=== PATIENT | male | born 1950 | race African-American/Black ===

== ENCOUNTER 2018-06-04 | Observation (INO) | payer OTHER, BC ==
[2018-06-04] MEDS ORDERED: NA CHLORIDE 0.9% 500 ML ONE ×2 (00:57→04:00)
[2018-06-04 00:59] LABS: Absolute Lymphocytes (CBC) 0.5 K/uL (0.7-4.9); Absolute Monocytes 0.6 K/uL (0.1-1.3); Absolute Neutrophil 8.8 K/uL (1.8-8.0); Basophils % 0.2 % (0-1.3); Eosinophils % 0.3 % (0-4.4); Hematocrit 47.4 % (39.6-49.0); Lymphocytes % 4.9 % (15.3-44.8); MPV 8.2 fL (7.6-11.3); Monocytes % 5.7 % (3.3-12.3); RBC Red Blood Cell Count 5.35 M/uL (4.33-5.43)
[2018-06-04 01:17] LABS: BUN Blood Urea Nitrogen 21 mg/dL (7-18); Bicarbonate 24 mmol/L (21-32); Glucose Level 174 mg/dL (74-106); NT PRO-BNP 27 pg/mL (<125); Potassium 3.7 mmol/L (3.5-5.1); Sodium Level 139 mmol/L (136-145); Troponin (Emerg Dept Use Only) < 0.02 ng/mL (0.0-0.045)
[2018-06-04 02:10] LABS: Blood Morphology Comment NOT SEEN (NOT SEEN); Platelet Estimate ADEQ; Urine White Blood Cell Casts OK
--- NOTE | 2018-06-04 02:48 | EDPHYS ---
Physician Documentation [facility] Name: Marquez De Oliveira Jr Age: 68 yrs Sex: Male : 1950 Arrival Date: 06/04/2018 Time: 00:04 Bed 6 Private MD: Porter Peres E ED Physician Duke Downs HPI: 06/04 01:05 This 68 yrs old Black Male presents to ER via Ambulatory with complaints of Dizziness, rn Nausea, Diarrhea. 01:05 The patient presents with feeling faint, generalized weakness, lightheadedness. rn 01:06 Onset: The symptoms/episode began/occurred at an unknown time. Modifying factors: The rn symptoms are alleviated by nothing, the symptoms are aggravated by standing up, changing position. Severity of symptoms: At their worst the symptoms were mild in the emergency department the symptoms are unchanged. The patient has experienced similar episodes in the past. Reports 1 month of cough, diarrhea, reports 2 rounds of z-packs, also reports recent trip to [place] when he began to feel worse, non-productive cough, drove 1000 miles without break, no hx of dvt/pe. No chest pain. + mild sob. No vomiting/abd pain.. Historical: - Allergies: 00:16 Amoxicillin; lp1 00:16 Aspirin; lp1 00:16 PENICILLINS; lp1 - Home Meds: 00:16 lisinopril 20 mg oral tab once daily [Active]; Coreg 6.25 mg oral tab 2 times per day lp1 [Active]; - PMHx: 00:16 Gout; Hypertension; lp1 - PSHx: 00:16 None; lp1 - Immunization history:: Adult Immunizations up to date. - Social history:: Smoking status: Patient/guardian denies using tobacco. - Ebola Screening: : No symptoms or risks identified at this time. - Family history:: not pertinent. - Hospitalizations: : No recent hospitalization is reported. ROS: 01:06 Constitutional: Negative for fever, chills, and weight loss, Eyes: Negative for injury, rn pain, redness, and discharge, Neck: Negative for injury, pain, and swelling, Cardiovascular: Negative for chest pain, palpitations, and edema, Respiratory: Negative for wheezing, and pleuritic chest pain, Abdomen/GI: Negative for abdominal pain, nausea, vomiting, and constipation, MS/Extremity: Negative for injury and deformity, Skin: Negative for injury, rash, and discoloration, Neuro: Negative for headache, numbness, tingling, and seizure. Exam: 01:06 Constitutional: This is a well developed, well nourished patient who is awake, alert, rn and in no acute distress. Head/Face: Normocephalic, atraumatic. Eyes: Pupils equal round and reactive to light, extra-ocular motions intact. Lids and lashes normal. Conjunctiva and sclera are non-icteric and not injected. Cornea within normal limits. Periorbital areas with no swelling, redness, or edema. Cardiovascular: Regular rhythm, + tachycardic, no murmur Respiratory: Mild tachypnea, no retractions, speaking full sentences Abdomen/GI: soft, non-tender Skin: Warm, dry with normal turgor. Normal color with no rashes, no lesions, and no evidence of cellulitis. MS/ Extremity: Pulses equal, no cyanosis. Neurovascular intact. Full, normal range of motion. Equal circumference. Neuro: Awake and alert, GCS 15, oriented to person, place, time, and situation. Cranial nerves II-XII grossly intact. Motor strength 5/5 in all extremities. Sensory grossly intact. Cerebellar exam normal. Vital Signs: 00:14 BP 125 / 71; Pulse 122; Resp 20; Temp 98.3(TE); Pulse Ox 96% on R/A; Weight 131.54 kg; lp1 Height 5 ft. 9 in. (175.26 cm); Pain 0/10; 01:25 BP 115 / 64; Pulse 108; Resp 23; Pulse Ox 95% ; ms 03:00 BP 101 / 60; Pulse 105; Resp 22; Pulse Ox 99% on R/A; lp1 04:45 BP 101 / 47; Pulse 101; Resp 23; Pulse Ox 100% on R/A; lp1 07:38 BP 107 / 70; Pulse 104; Resp 22; Pulse Ox 96% on R/A; sv 00:14 Body Mass Index 42.83 (131.54 kg, 175.26 cm) lp1 MDM: 00:08 Patient medically screened. rn 02:44 Differential diagnosis: cardiac arrhythmia, generalized weakness, hyperventilation, rn hypovolemia, idiopathic dizziness, near-syncope, PE. Data reviewed: vital signs, nurses notes, lab test result(s), EKG, radiologic studies, CT scan, and as a result, I will admit patient. Counseling: I had a detailed discussion with the patient and/or guardian regarding: the historical points, exam findings, and any diagnostic results supporting the discharge/admit diagnosis, lab results, radiology results, the need for further work-up and treatment in the hospital. Response to treatment: the patient's symptoms have mildly improved after treatment. Admission orders: after a detailed discussion of the patient's condition and case, the admit orders are written by me. ED course: CT shows multiple bilateral Pulmonary emboli, will admit for lovenox and further care. . 06/04 00:17 Order name: Blood Culture Adult (2) rn 06/04 00:17 Order name: BMP; Complete Time: : rn 06/04 00:17 Order name: CBC with Diff; Complete Time: 02:25 rn 06/04 00:17 Order name: NT PRO-BNP; Complete Time: : rn 06/04 00:17 Order name: Troponin (emerg Dept Use Only); Complete Time: 01: rn 06/04 00:19 Order name: Strep; Complete Time: 02:25 rn 06/04 00:17 Order name: XRAY CXR (1 view) rn 06/04 00:17 Order name: EKG; Complete Time: 00:18 rn 06/04 00:44 Order name: CT Chest For PE Angio rn 06/04 01:22 Order name: Throat Culture EDKS 06/04 02:10 Order name: CBC Smear Scan; Complete Time: 02:25 [facility] 06/04 00:17 Order name: Cardiac monitoring; Complete Time: 00:32 rn 06/04 00:17 Order name: EKG - Nurse/Tech; Complete Time: 00:32 rn 06/04 00:17 Order name: IV Saline Lock; Complete Time: 00:45 rn 06/04 00:17 Order name: Labs collected and sent; Complete Time: 00:44 rn 06/04 00:17 Order name: O2 Per Protocol; Complete Time: 00:32 rn 06/04 00:17 Order name: O2 Sat Monitoring; Complete Time: 00:32 rn Administered Medications: 00:56 Drug: NS 0.9% 500 ml Route: IV; Rate: bolus; Site: left antecubital; lp1 02:00 Follow up: IV Status: Completed infusion; IV Intake: 500ml lp1 03:18 Drug: Lovenox 1 mg/kg Route: Sub-Q; Site: right lower abdomen; lp1 04:00 Follow up: Response: No adverse reaction lp1 03:54 Drug: NS 0.9% 500 ml Route: IV; Rate: bolus; Site: left antecubital; lp1 05:00 Follow up: IV Status: Completed infusion; IV Intake: 500ml lp1 Disposition: 06/04/18 02:46 Hospitalization ordered by Ginger Arenas for Inpatient Admission. Preliminary diagnosis are Pulmonary embolism, Dyspnea, unspecified. - Bed requested for Telemetry/MedSurg (Inpatient). - Status is Inpatient Admission. sv - Condition is Stable. - Problem is new. - Symptoms have improved. UTI on Admission? No Signatures: Dispatcher [employer] EDMS Sol Stoner RN RN kl Verde, Stephanie, RN RN sv Therrien, Shelly, FOOD SERVICE TRAY ATTENDANT-C FOOD SERVICE TRAY ATTENDANT-Csnw Rasheeda Breaux RN RN Duke Downs MD MD rn Pena, Laura, RN RN lp1 Corrections: (The following items were deleted from the chart) 04:22 02:46 Hospitalization Ordered by Ginger Arenas MD for Inpatient Admission. Preliminary diagnosis is Pulmonary embolism; Dyspnea, unspecified. Bed requested for Telemetry/MedSurg (Inpatient). Status is Inpatient Admission. Condition is Stable. Problem is new. Symptoms have improved. UTI on Admission? No. rn 06:46 04:22 06/04/2018 02:46 Hospitalization Ordered by Ginger Arenas MD for Inpatient kl Admission. Preliminary diagnosis is Pulmonary embolism; Dyspnea, unspecified. Bed requested for [facility] ER HOLD. Status is Inpatient Admission. Condition is Stable. Problem is new. Symptoms have improved. UTI on Admission? No. fc 07:39 06:46 06/04/2018 02:46 Hospitalization Ordered by Ginger Arenas MD for Inpatient sv Admission. Preliminary diagnosis is Pulmonary embolism; Dyspnea, unspecified. Bed requested for Telemetry/MedSurg (Inpatient). Status is Inpatient Admission. Condition is Stable. Problem is new. Symptoms have improved. UTI on Admission? No. kl 07:50 07:39 06/04/2018 02:46 Hospitalization Ordered by Ginger Arenas MD for Inpatient sv Admission. Preliminary diagnosis is Pulmonary embolism; Dyspnea, unspecified. Bed requested for Telemetry/MedSurg (Inpatient). Status is Inpatient Admission. Condition is Stable. Problem is new. Symptoms have improved. UTI on Admission? No. sv
--- NOTE | 2018-06-04 02:48 | ER ---
Nurse's Notes [facility] Name: Marquez De Oliveira Jr Age: 68 yrs Sex: Male : 1950 Arrival Date: 06/04/2018 Time: 00:04 Bed 6 Private MD: Porter Peres E Diagnosis: Pulmonary embolism;Dyspnea, unspecified Presentation: 06/04 00:12 Presenting complaint: Patient states: Nausea, dizziness, diarrhea x 1 month, worsening; lp1 States taking 2 rounds of antibiotics with relief but recently traveled to [place] and symptoms worsened; Denies any abdominal pain, vomiting. Transition of care: patient was not received from another setting of care. Onset of symptoms was June 04, 2018. Risk Assessment: Do you want to hurt yourself or someone else? Patient reports no desire to harm self or others. Initial Sepsis Screen: Does the patient meet any 2 criteria? No. Patient's initial sepsis screen is negative. Does the patient have a suspected source of infection? No. Patient's initial sepsis screen is negative. Care prior to arrival: None. 00:12 Method Of Arrival: Ambulatory lp1 00:12 Acuity: NESHA 3 lp1 Historical: - Allergies: 00:16 Amoxicillin; lp1 00:16 Aspirin; lp1 00:16 PENICILLINS; lp1 - Home Meds: 00:16 lisinopril 20 mg oral tab once daily [Active]; Coreg 6.25 mg oral tab 2 times per day lp1 [Active]; - PMHx: 00:16 Gout; Hypertension; lp1 - PSHx: 00:16 None; lp1 - Immunization history:: Adult Immunizations up to date. - Social history:: Smoking status: Patient/guardian denies using tobacco. - Ebola Screening: : No symptoms or risks identified at this time. - Family history:: not pertinent. - Hospitalizations: : No recent hospitalization is reported. Screenin:17 Abuse screen: Denies threats or abuse. Denies injuries from another. Nutritional lp1 screening: No deficits noted. Tuberculosis screening: No symptoms or risk factors identified. Fall Risk None identified. Assessment: 00:15 General: Appears in no apparent distress. Behavior is calm, cooperative, appropriate lp1 for age. Pain: Complains of pain in abdomen. Neuro: Level of Consciousness is awake, alert, obeys commands, Oriented to person, place, time, situation, Reports dizziness. Cardiovascular: Patient's skin is warm and dry. Respiratory: Respiratory effort is even, Respiratory pattern is regular, symmetrical, Breath sounds are clear bilaterally. GI: Abdomen is non-distended, Bowel sounds present X 4 quads. Reports diarrhea, nausea. : No signs and/or symptoms were reported regarding the genitourinary system. EENT: No signs and/or symptoms were reported regarding the EENT system. Derm: Skin is intact, Skin is dry, Skin is normal. Musculoskeletal: Circulation, motion, and sensation intact. 01:30 Reassessment: Patient appears in no apparent distress at this time. Patient and/or lp1 family updated on plan of care and expected duration. Pain level reassessed. Patient aware of waiting for results, at bedside. 03:30 Reassessment: Patient aware of need for admission. lp1 04:30 Reassessment: Patient appears in no apparent distress at this time. Patient and/or lp1 family updated on plan of care and expected duration. Pain level reassessed. Patient complaint of abdominal pain and continued diarrhea. 07:39 Reassessment: Report called to Andrés CANAS. sv Vital Signs: 00:14 BP 125 / 71; Pulse 122; Resp 20; Temp 98.3(TE); Pulse Ox 96% on R/A; Weight 131.54 kg; lp1 Height 5 ft. 9 in. (175.26 cm); Pain 0/10; 01:25 BP 115 / 64; Pulse 108; Resp 23; Pulse Ox 95% ; ms 03:00 BP 101 / 60; Pulse 105; Resp 22; Pulse Ox 99% on R/A; lp1 04:45 BP 101 / 47; Pulse 101; Resp 23; Pulse Ox 100% on R/A; lp1 07:38 BP 107 / 70; Pulse 104; Resp 22; Pulse Ox 96% on R/A; sv 00:14 Body Mass Index 42.83 (131.54 kg, 175.26 cm) lp1 ED Course: 00:04 Patient arrived in ED. es 00:04 Porter Peres MD is Private Physician. es 00:08 Duke Downs MD is Attending Physician. rn 00:14 Triage completed. lp1 00:14 Arm band placed on left wrist. lp1 00:17 Patient has correct armband on for positive identification. Placed in gown. Cardiac lp1 monitor on. Pulse ox on. NIBP on. 00:31 Elsi Toscano, FLORESITA is Primary Nurse. lp1 00:40 Inserted saline lock: 20 gauge in left antecubital area, using aseptic technique. Blood lp1 collected. By LANDON Sommers. 00:40 Initial lab(s) drawn, by ED staff, sent to lab. First set of blood cultures drawn by ED lp1 staff. 00:46 X-ray completed. Portable x-ray completed in exam room. Patient tolerated procedure sg4 well. 00:47 XRAY CXR (1 view) In Process Unspecified. EDMS 00:51 Strep swab sent to lab. lp1 01:[address] via stretcher. kw1 01:52 CT Chest For PE Angio In Process Unspecified. EDMS 01:[address]. sg4 02:46 Ginger Arenas MD is Hospitalizing Provider. rn 05:16 No provider procedures requiring assistance completed. Patient admitted, IV remains in lp1 place. Administered Medications: 00:56 Drug: NS 0.9% 500 ml Route: IV; Rate: bolus; Site: left antecubital; lp1 02:00 Follow up: IV Status: Completed infusion; IV Intake: 500ml lp1 03:18 Drug: Lovenox 1 mg/kg Route: Sub-Q; Site: right lower abdomen; lp1 04:00 Follow up: Response: No adverse reaction lp1 03:54 Drug: NS 0.9% 500 ml Route: IV; Rate: bolus; Site: left antecubital; lp1 05:00 Follow up: IV Status: Completed infusion; IV Intake: 500ml lp1 Intake: 02:00 IV: 500ml; Total: 500ml. lp1 05:00 IV: 500ml; Total: 1000ml. lp1 Outcome: 02:46 Decision to Hospitalize by Provider. rn 05:16 Admitted to ER Hold. Please see [facility] for further documentation. lp1 05:16 Condition: stable 05:16 Instructed on the need for admit. 07:50 Patient left the ED. sv Signatures: Dispatcher [employer] Jamilah Lieberman RN RN sv Salyer, Edna es Solis, Maria ms Nieto, Roman, MD MD rn Pena, Laura, RN RN lp1 Sol Solitario1 Kenya Pappas sg4 Corrections: (The following items were deleted from the chart) 00:55 00:40 Initial lab(s) drawn, by ED staff, sent to lab. First set of blood cultures drawn lp1 lp1
[2018-06-04] MEDS ORDERED: ENOXAPARIN 100 MG/ML SYR SQ ONE (03:16)
[2018-06-04] MEDS ORDERED: ENOXAPARIN 30 MG/0.3 ML SQ ONE (03:17)
[2018-06-04] MEDS ORDERED: ACETAMINOPHEN 500 MG TAB PO PRN (04:37)
[2018-06-04] MEDS ORDERED: ONDANSETRON 4 MG/2 ML VIAL IV PRN (04:37)
[2018-06-04] MEDS: NA CHLORIDE 0.9% 1,000 ML IV SCH ×2 (05:16→16:27)
[2018-06-04] MEDS ORDERED: NA CHLORIDE 0.9% 1,000 ML ONE (05:21)
[2018-06-04] MEDS ORDERED: MORPHINE 2 MG/ML SYR IV PRN (05:26)
--- NOTE | 2018-06-04 05:33 | P.HP ---
Certification for Inpatient Patient admitted to: Inpatient With expected LOS: >2 Midnights Practitioner: I am a practitioner with admitting privileges, knowledge of patient current condition, hospital course, and medical plan of care. Services: Services provided to patient in accordance with Admission requirements found in Title 42 Section 412.3 of the Code of Federal Regulations Patient History Date of Service: 06/04/18 Reason for admission: pulmonary embolism History of Present Illness: Mr De Oliveira is a 68 years old male with history of HTN, since 1 month ago start with cough, he was treated with 2 rounds of oral antibiotics. He recently did a road trip to [place], he came to ED complaining of SOB, feeling faint and dizzy , specially when he stand up fro bed or chair. No history of fever or chills. No chest pain. He presented tahcycardic, O2 sat 96% on RA. In ER lab work remarkable for normal WBC count, elevated creatinine. CXR shows no acute abnormalities, CTA chest remarkable for multiple bilateral PE. Allergies aspirin Allergy (Intermediate, Verified 02/26/12 08:43) Hives/Rash amoxicillin [Amoxicillin] Allergy (Mild, Verified 02/26/12 08:43) Itching/Hives/Rash Penicillins Allergy (Verified 06/04/18 05:31) Itching/Hives/Rash Home Medications: Carvedilol [Coreg] 6.25 mg PO BID 06/04/18 Lisinopril [Prinivil] 20 mg PO DAILY 06/04/18 - Past Medical/Surgical History -: obesity -: gout -: HTN Past Surgical History: Reviewed- Non-Contributory - Family History Family History: Reviewed- Non-Contributory - Social History Smoking Status: Former smoker Alcohol use: No CD- Drugs: No Place of Residence: Home Review of Systems 10-point ROS is otherwise unremarkable Physical Examination - Physical Exam General: Alert, In no apparent distress HEENT: Atraumatic, PERRLA, Mucous membr. moist/pink, EOMI, Sclerae nonicteric Neck: Supple, 2+ carotid pulse no bruit, No LAD, Without JVD or thyroid abnormality Respiratory: Clear to auscultation bilaterally, Normal air movement Cardiovascular: Regular rate/rhythm, Normal S1 S2 Gastrointestinal: Normal bowel sounds, No tenderness Musculoskeletal: No tenderness Integumentary: No rashes Neurological: Normal speech, Normal strength at 5/5 x4 extr, Normal tone, Normal affect Lymphatics: No axilla or inguinal lymphadenopathy - Studies Laboratory Data (last 24 hrs) 06/04/18 00:40: WBC 9.9, Hgb 15.9, Hct 47.4, Plt Count 237 06/04/18 00:40: Sodium 139, Potassium 3.7, BUN 21 H, Creatinine 1.51 H, Glucose 174 H Microbiology Data (last 24 hrs): 06/04/18 00:45 Throat Group A Streptococcus Rapid Screen - Final Assessment and Plan - Problems (Diagnosis) (1) Pulmonary embolism Current Visit: Yes Status: Acute Qualifiers: Pulmonary embolism type: unspecified Chronicity: acute Acute cor pulmonale presence: without acute cor pulmonale Qualified Code(s): I26.99 - Other pulmonary embolism without acute cor pulmonale (2) HTN (hypertension) Current Visit: Yes Status: Acute Qualifiers: Hypertension type: essential hypertension Qualified Code(s): I10 - Essential (primary) hypertension (3) Obesity Current Visit: Yes Status: Acute Qualifiers: Obesity type: unspecified obesity type Obesity classification: unspecified obesity classification Serious obesity comorbidity presence: unspecified whether serious comorbidity present Qualified Code(s): E66.9 - Obesity, unspecified - Plan Will order full anticoagulation with lovenox, venous doppler of lower extremities, Os2 support as needed. - Advance Directives Does patient have a Living Will: No Does patient have a Durable POA for Healthcare: No - Code Status/Comfort Care Code Status Assessed: Yes Code Status: Full Code
[2018-06-04 05:40] VITALS: BMI 42.8
[2018-06-04] MEDS ORDERED: ONDANSETRON 4 MG/2 ML VIAL ONE (05:54)
[2018-06-04] MEDS ORDERED: MORPHINE 4 MG/ML SYR ONE (05:54)
[2018-06-04] MEDS ORDERED: DIPHENHYDRAMINE 25 MG TAB/CAP PO PRN (08:53)
[2018-06-04] MEDS ORDERED: PNEUMOCOCCAL VACCINE 0.5 ML IMVAC ONE (09:00)
[2018-06-04] MEDS ORDERED: INFLUENZA VACCINE (for 3y+) 0.5 ML DOSE IMVAC ONE (09:00)
[2018-06-04] MEDS ORDERED: ENOXAPARIN 100 MG/ML SYR SQ SCH (09:00)
[2018-06-04] MEDS ORDERED: MORPHINE 4 MG/ML SYR IV PRN (11:00)
--- NOTE | 2018-06-04 12:02 | RAD REPORT ---
EXAM DESCRIPTION: CT - Chest For Pe Angio - 06/04/2018 5:50 am CLINICAL HISTORY: Chest pain. DYSPNEA COMPARISON: No comparisons TECHNIQUE: CT angiogram of the pulmonary arteries was performed with MIP. All CT scans are performed using dose optimization technique as appropriate and may include automated exposure control or mA/KV adjustment according to patient size. FINDINGS: Small filling defects are noted in the upper and lower distal pulmonary arterial tree bran ches. Assessment is somewhat degraded by respiratory motion artifact small distal pulmonary emboli robledo spected. No acute aortic finding demonstrated. Small hiatal hernia. The lungs are clear. No significant pericardial or pleural fluid. No concerning bony finding. IMPRESSION: Small distal pulmonary emboli suspected bilaterally. A preliminary written report was provided at the time of the study, and the report was reviewed prior to final dictation.
--- NOTE | 2018-06-04 12:10 | RAD REPORT ---
EXAM DESCRIPTION: RAD - Chest Single View - 06/04/2018 12:47 am CLINICAL HISTORY: Cough;Dyspnea Chest pain. COMPARISON: Chest Single View dated 08/15/2016; CHEST SINGLE VIEW dated 02/26/2012 FINDINGS: Portable technique limits examination quality. The lungs are grossly clear. The heart is normal in size. No displaced fractures. IMPRESSION: No acute intrathoracic process suspected.
[2018-06-04] MEDS ORDERED: POTASSIUM CL SA 10 MEQ TAB PO ONE (15:50)
[2018-06-04] MEDS: ENOXAPARIN 100 MG/ML SYR SQ SCH (16:27)
--- NOTE | 2018-06-04 16:28 | EKG ---
Test Date: 2018-06-04 Test Time: 00:24:43 Carpentry Professional: KAY MEASUREMENT RESULTS: Intervals: Rate: 119 IA: 152 QRSD: 86 QT: 320 QTc: 450 [place]: P: 18 IA: 152 QRS: -33 T: -19 INTERPRETIVE STATEMENTS: Sinus tachycardia Left axis deviation Inferior infarct, age undetermined Abnormal ECG Compared to ECG 08/15/2016 13:50:35 Left-axis deviation now present Myocardial infarct finding now present Sinus bradycardia no longer present Electronically Signed On 06-04-18 16:27:20 DEMURRAGE AGENT by Benito De Oliveira
--- NOTE | 2018-06-04 16:45 | RAD REPORT ---
EXAM DESCRIPTION: US - Extrem Venous W Compress Bashir - 06/04/2018 4:26 pm CLINICAL HISTORY: rule out DVT Bilateral leg edema and swelling. COMPARISON: No comparisons TECHNIQUE: Real-time sonographic interrogation of the left and right lower extremity deep venous sys tems was performed. FINDINGS: Normal compressibility, flow augmentation, phasic flow and spontaneous flow is identified in both the left and right lower extremity deep venous systems. IMPRESSION: No sonographic evidence of left or right lower extremity deep venous thrombosis.
--- NOTE | 2018-06-04 18:06 | PN ---
Date of Progress Note: 06/04/2018 Subjective: Patient seen and examined. Chart reviewed and case discussed with RN. The patient belgica es any significant shortness of breath. Does report some hives that have developed on his back. Medications: Reviewed. Code Status: Full. Physical Examination: Vital Signs: Temperature 97.3, heart rate 76, blood pressure 117/58, respirations 20, O2 97% on room air. GENERAL: Awake, alert, oriented x3, some mild distress. Obese male. Slightly ill appearing. CV: S1, S2 with no murmurs. Peripheral pulses present. Respiratory: Moving air well bilaterally. Gastrointestinal: Abdomen is soft, nontender, nondistended. Positive bowel sounds. Extremities: No clubbing, cyanosis, edema. Neurologic: Nonfocal. Laboratory Data: Sodium 139, potassium 3.7, chloride 106, CO2 24, BUN 21, creatinine 1.51, glucose 1 74, calcium 8.5. Troponin less than 0.02. WBC 9.9, H and H 15.9/47.4, platelets 237. Blood culture pending. CT angio chest shows small distal PE suspected bilaterally. Chest x-ray, personally reviewed, shows no acute intrathoracic process. Assessment And Plan: A 68-year-old male with: 1.Acute bilateral pulmonary embolism without cor pulmonale. 2.Essential hypertension. 3.Morbid obesity, BMI 42.8. 4.Gout. We will resume home medications. Plan: We will continue with full-dose anticoagulation with Lovenox. We will obtain venous Doppler o f the lower extremities. Supplemental oxygen as needed. We will consult Pulmonology. Obtain echoca rdiogram. The patient will need to be on oral anticoagulant for 3 to 6 months as this is a provoked PE secondary to likely DVT. The patient had a long car drive to [place] and did not take many stops . No family history of blood clots and no personal history of previous blood clots. Discharge the n ext 24 to 48 hours depending on clinical response. SA/MODL Voice ID: [id number] Report ID: [id number]
[2018-06-04] MEDS ORDERED: LISINOPRIL 20 MG TAB PO SCH (21:00)
[2018-06-04] MEDS: CARVEDILOL 6.25 MG TAB PO SCH (21:37)
[2018-06-05] MEDS: ENOXAPARIN 100 MG/ML SYR SQ SCH (02:23)
[2018-06-05] MEDS: NA CHLORIDE 0.9% 1,000 ML IV SCH ×2 (02:23→10:37)
[2018-06-05 04:37] LABS: Absolute Lymphocytes (CBC) 2.3 K/uL (0.7-4.9); Absolute Monocytes 1.2 K/uL (0.1-1.3); Basophils % 0.2 % (0-1.3); Eosinophils % 2.5 % (0-4.4); Hematocrit 41.7 % (39.6-49.0); Lymphocytes % 29.9 % (15.3-44.8); MPV 8.2 fL (7.6-11.3); Monocytes % 15.7 % (3.3-12.3)
[2018-06-05 05:01] LABS: Blood Morphology Comment NOT SEEN (NOT SEEN); Platelet Estimate ADEQ; Urine White Blood Cell Casts OK
[2018-06-05 05:06] LABS: Magnesium 2.3 mg/dL (1.8-2.4); Potassium 4.1 mmol/L (3.5-5.1)
[2018-06-05] MEDS ORDERED: PANTOPRAZOLE 40MG TABLET PO SCH (07:30)
--- NOTE | 2018-06-05 08:40 | P.CNS ---
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 for an SVT apart from hypertension no other medical problems no prior history of thromboemboli denies any swelling of his lower extremities CT school and questionable pulmonary emboli a as no evidence of DVT Allergies aspirin Allergy (Intermediate, Verified 02/26/12 08:43) Hives/Rash amoxicillin [Amoxicillin] Allergy (Mild, Verified 02/26/12 08:43) Itching/Hives/Rash Penicillins Allergy (Verified 06/04/18 05:31) Itching/Hives/Rash Home Medications: Acetaminophen [Tylenol Extra Strength] 1,000 mg PO PRN PRN 06/04/18 Carvedilol [Coreg] 6.25 mg PO BID 06/04/18 Docusate [Colace Cap*] 100 mg PO DAILY 06/04/18 Lisinopril [Prinivil] 20 mg PO BID 06/04/18 Multivit-Min/FA/Lycopen/Lutein [Centrum Silver Men Tablet] 1 each PO DAILY 06/04 Omeprazole 20 mg PO DAILY 06/04/18 - Past Medical/Surgical History Diabetic: No -: obesity -: gout -: HTN -: obstructive sleep apnea -: high cholesterol -: GERT -: diverticulosis - Family History Mother Medical History: Hypertension, Diabetes - Social History Alcohol use: No CD- Drugs: No Caffeine use: No Place of Residence: Home Review of Systems 10-point ROS is otherwise unremarkable Physical Examination Temp Pulse Resp BP Pulse Ox 97 F 64 20 133/63 98 06/05/18 08:00 06/05/18 08:00 06/05/18 08:00 06/05/18 08:00 06/05/18 08:00 General: Alert, In no apparent distress, Oriented x3, Cachectic Neck: Supple Respiratory: Clear to auscultation bilaterally Cardiovascular: No edema, Regular rate/rhythm, Normal S1 S2 - Problems (1) Abnormal CT scan of lung Current Visit: Yes Status: Acute Plan: Patient is 68 years of age admitted with a 2 week history of cough shortness of breath and diarrhea I suspect he may have a had a viral infection not convinced that this is pulmonary embolism unable to visualize any significant thromboemboli in his lungs no evidence of DVT low pre clinical probability for thromboembolism I suggested V/Q scan a this negative anticoagulants can be discontinued patient discharged home he does have sleep apnea uses CPAP chemistries and CBC unremarkable vital signs are satisfactory saturation is normal echocardiogram is pending
[2018-06-05] MEDS ORDERED: HOME MED 1 EA UNK (Omeprazole [Omeprazole] 20 MG) PO SCH (09:00)
[2018-06-05] MEDS ORDERED: DOCUSATE NA 100 MG CAP PO SCH (09:00)
[2018-06-05] MEDS: CARVEDILOL 6.25 MG TAB PO SCH (09:31)
[2018-06-05 10:10] VITALS: O2SAT 98
--- NOTE | 2018-06-05 10:27 | RAD REPORT ---
EXAM DESCRIPTION: NM - Vent Perfusion VQ Scan - 06/05/2018 10:09 am CLINICAL HISTORY: SOB, possible PE COMPARISON: Chest For Pe Angio dated 06/04/2018 TECHNIQUE: 13.9mCi Xe-133 gas inhaled and 7.5mCi Tc-MAA IV. Planar ventilation scan was performed in posterior projection after Xe-133 gas inhalation (wash-in, e quilibrium, and wash-out phases) followed by perfusion scan with Tc-MAA IV in multiple projections. Examination is correlated with recent chest radiograph. FINDINGS: Homogeneous ventilation is noted with mild to moderate air trapping seen. No mismatched segmental perfusion defect. IMPRESSION: Low probability of acute pulmonary embolism. Mild to moderate air trapping likely indicates underlying COPD physiology.
--- NOTE | 2018-06-05 12:05 | ECHO ---
HEIGHT: 5 ft 9 in WEIGHT: 289 lb 15.937 oz DATE OF STUDY: 06/05/[address]: Haja Hamilton MD 2-DIMENSIONAL: YES M.MODE: YES DOPPLER: YES COLOR FLOW: YES TDS: NO PORTABLE: NO DEFINITY: NO BUBBLE STUDY: NO DIAGNOSIS: EVALUATE FOR RIGHT VENTRICULAR STRAIN CARDIAC HISTORY: CATHERIZATION: NO SURGERY: NO PROSTHETIC VALVE: NO PACEMAKER: NO MEASUREMENTS (cm) DIASTOLIC (NORMALS) SYSTOLIC (NORMALS) IVSd 0.9 (0.6-1.2) LA Diam 4.8 (1.9-4.0) LVEF 56% LVIDd 4.4 (3.5-5.7) LVIDs 3.1 (2.0-3.5) %FS 29% LVPWd 0.9 (0.6-1.2) Ao Diam 3.1 (2.0-3.7) 2 DIMENSIONAL ASSESSMENT: RIGHT ATRIUM: NORMAL LEFT ATRIUM: NORMAL RIGHT VENTRICLE: NORMAL LEFT VENTRICLE: NORMAL TRICUSPID VALVE: NORMAL MITRAL VALVE: NORMAL PULMONIC VALVE: NORMAL AORTIC VALVE: NORMAL PERICARDIAL EFFUSION: NONE AORTIC ROOT: NORMAL LEFT VENTRICULAR WALL MOTION: NORMAL. DOPPLER/COLOR FLOW: MILD MITRAL REGURGITATION AND TRICUSPID REGURGITATION. NORMAL RIGHT VENTRICULAR SYSTOLIC PRESSURE. COMMENTS: NORMAL 2D ECHOCARDIOGRAM. MILD MITRAL REGURGITATION AND TRICUSPID REGURGITATION. TECHNOLOGIST: WILFREDO CABRAL RDCS
[2018-06-05 12:20] VITALS: BP 111/55; TEMP 97.5
[2018-06-05] MEDS ORDERED: LISINOPRIL 20 MG TAB PO SCH (21:00)
--- NOTE | 2018-06-06 05:32 | DS ---
Date of Discharge: 06/05/2018 Dianeticist: Dr. Franz with Pulmonology. Admitting Diagnoses: 1. Pulmonary embolism without cor pulmonale. 2. Essential hypertension. 3. Obesity. Discharge Diagnoses: 1. Abnormal CT scan of the lung. 2. Essential hypertension. 3. Morbid obesity, body mass index 42. 4. Gout. 5. Acute kidney injury. Hospital Course: The patient is a 68-year-old male who was admitted to the hospital for PE. The patient has a past medical history of hypertension, gout, obesity, history of SVT, was in his usual state of health until 1 week ago when he started having a cough. He was treated with 2 rounds of oral antibiotics. The patient took a road trip to [place], did not take any frequent stops, felt faint and dizzy, became very tachycardic, and came in to the ER for further evaluation. CT angio of the chest was done, which was read initially as small distal pulmonary emboli suspected bilaterally. The patient was started on Lovenox therapeutic dose, and venous Doppler was done which was negative for any DVT. Presentation was unusual. Therefore, Pulmonology was consulted. Echocardiogram was ordered. Dr. Gonzalez recommended a V/Q scan to confirm or refute the PE as he felt that the CT angio did not show PE. Radiology workup stated suspected PE. V/Q scan came back as low probability. Therefore, Lovenox was discontinued. His tachycardia and other symptoms were likely related to the upper respiratory tract infection that he has been dealing with over the past month. Overall, his O2 saturations were normal without any hypoxia. His heart rate also improved and normalized. The patient remained afebrile. His cultures have shown no growth to date. Strep screen was negative. Throat culture showed normal respiratory chris. The patient was then cleared for discharge from Pulmonology standpoint. Followup: The patient is to follow up with PCP in 2 to 3 days. Return to the ER for worsening condition. Diet: Heart healthy. Activity: As tolerated. Medications: As per medication reconciliation list. Physical Examination: General: Awake, alert, oriented, no acute distress. CV: S1, S2. No murmurs. Respiratory: Moving air well bilaterally. No wheezing. Gastrointestinal: Abdomen is soft, nontender, and nondistended. Positive bowel sounds. Extremities: No clubbing, cyanosis, or edema. No calf tenderness. Neurologic: Nonfocal. SA/MODL Voice ID: [id number] Report ID: [id number] [id number]
== END 2018-06-05 15:11 | disposition home or self-care (01) ==
LOC: ER → INTOOBSV 03:57 → ERHOLD 03:57 → 2ND 07:39
PROVIDERS: ADMIT Internal Medicine; ATTEND Internal Medicine
DX: R91.8 Other nonspecific abnormal finding of lung field (principal); I10 Essential (primary) hypertension; M10.9 Gout, unspecified; E66.01 Morbid (severe) obesity due to excess calories; Z68.41 Body mass index [BMI] 40.0-44.9, adult; N17.9 Acute kidney failure, unspecified; Z23 Encounter for immunization; Z88.6 Allergy status to analgesic agent; Z88.0 Allergy status to penicillin
CPT/HCPCS: 36415 ×2; 71045; 71275; 78582; 80048 ×2; 83735; 83880; 84484; 85025 ×2; 87040; 87070; 87081; 90670; 93005; 93306; 93970; 94760; 96360; 96361; 96372; 99285; A9540; A9558; G0008; G0009; G0378 ×2; J1650 ×4; J2405; J7030 ×4; Q2035

== ENCOUNTER 2021-06-05 02:31 | Emergency (ER) | payer OTHER, BC ==
--- OUTSIDE RECORDS SUMMARY | 2021-06-05 02:56 | XMS REPORT | Continuity of Care Document ---
:1950 Author Organization [facility] t Address [address] [place] [address] [address] [place] [address] Care Team Providers Name Role Phone ELISA OTERO Primary Care Physician Unavailable Only, Db Test Attending Clinician Unavailable Sivakumar AGUILERA Attending Clinician SIVAKUMAR Attending Clinician Unavailable Nurse, Pob Immunization Attending Clinician Unavailable Dung Boo DO Attending Clinician DUNG BOO Attending Clinician Unavailable Leo RINALDI G Attending Clinician Breanne BAILEY Attending Clinician Unavailable Singer DILLARD Attending Clinician Benita PAC, S Attending Clinician Tatiana JOY Attending Clinician Unavailable Doctor Unassigned, Name Attending Clinician Unavailable Hemalatha LARSENP, T Attending Clinician Roshan RN, A Attending Clinician Unavailable SUZIE Attending Clinician Unavailable Suzie AGUILERA Attending Clinician Breanne BAILEY Admitting Clinician Unavailable SUZIE Admitting Clinician Unavailable Suzie AGUILERA Admitting Clinician Payers Payer Name Policy Type Policy Number Effective Date Expiration Date S sander MEDICARE PART A [id number] 2016 \\T\\ B 00:00:00 [facility] [place] [facility] - [id number] 2009 OUT OF STATE 00:00:00 Problems Condition Condition Condition Status Onset Resolution Last Treating Co mments Source Name Details Category Date Date Treatment Clinician Date Chest pain Chest pain Disease Active U nivers 10-22 ity of 00:00: [place] 00 Medical Branch Morbid Morbid Disease Active Univers obesity obesity 10-22 ity of 00:00: [place] 00 Medical [facility] PAF PAF Disease Active Univers (paroxysma (paroxysma 10-22 it y of l atrial l atrial 00:00: [place] fibrillati fibrillati 00 Me dical on) on) Branch Essential Essential Disease Active Uni vers hypertensi hypertensi 10-22 it y of on on 00:00: [place] 00 Medical Branch LU LU Disease Active Univers (obstructi (obstructi 10-22 it y of ve sleep ve sleep 00:00: [place] apnea) apnea) 00 Medical Branch Allergies, Adverse Reactions, Alerts Allergy Allergy Status Severity Reaction(s) Onset Inactive Treating Comm ents Source Name Type Date Date Clinician Penicill Propensi Active Hives Univer s in ty to 01-21 ity of adverse 00:00: [place] reaction 00 Medical s Branch PENICILL DRUG Active Hives Univers IN INGREDI 01-21 ity of 00:00: [place] 00 Medical Branch Penicill Propensi Active Hives Univer s in ty to 01-21 ity of adverse 00:00: [place] reaction 00 Medical s Branch ASPIRIN- DRUG Active Hives Univers ACETAMIN 5-30 ity of OPHEN-CA 00:00: [place] FFEINE 00 Medical Branch Amoxicil Propensi Active Hives Univer s betty ty to 5-30 ity of adverse 00:00: [place] reaction 00 Medical s Branch Aspirin Propensi Active Hives Avoids Univers ty to 5-30 aspirin ity of adverse 00:00: due to [place] reaction 00 hives Medical s from Branch Excedrin Extra-Str ength. Tolerates acetamino phen and caffeine without incident. Aspirin- Propensi Active Hives Univer s Acetamin ty to 5-30 ity of ophen-Ca adverse 00:00: [place] ffeine reaction 00 Medical s Branch AMOXICIL DRUG Active Hives Univers BETTY INGREDI 5-30 ity of 00:00: [place] 00 Medical Branch ASPIRIN DRUG Active Hives Univers INGREDI 5-30 ity of 00:00: [place] 00 Medical Branch Social History Social Habit Start Date Stop Date Quantity Comments Source Exposure to Not sure University of SARS-CoV-2 [place] [facility] (event) Branch Alcohol intake 2021-03-12 2021-03-12 Ex-drinker University 00:00:00 00:00:00 (finding) [facility] Tobacco use and 2019-10-23 2019-10-23 Never used Universit y of exposure 00:00:00 00:00:00 [facility] Sex Assigned At [birth year] Universit y of 00:00:00 00:00:00 [facility] Smoking Status Start Date Stop Date Source Former smoker 2019-10-23 00:00:00 2019-10-23 00:00:00 Universi ty [facility] Medications Ordered Filled Start Stop Current Ordering Indication Dosage Frequency Signature Comments Components Source Medication Medication Date Date Medication? Clinician (SIG) Name Name maalox:diph 2020-05 No 15mL 15 mL, Uni vers enhydrAMINE 03-12 Oral, ity of :lidocaine 23:30: 22:24 ONCE, 1 [place] as 2 % viscous 00 :00 dose, On Medi jil 1:1:1 [facility] Branch (FIRST-MOUT 03/12/21 [facility]) at 1830, oral Routine suspension 15 mL famotidine 2020-05 No 20mg 20 mg, Univ ers (PEPCID 03-12 Slow IV ity of (PF)) 23:00: 22:25 Push, [place] injection 00 :00 ONCE, 1 Medical 20 mg dose, On Branch Tiffanie 03/12/21 at 1800, AZAM lisinopril Yes 20mg Take 20 mg U nivers (PRINIVIL,Z 23 by mouth 2 it y of ESTRIL) 20 13:25: (two) [place] mg tablet 10 times Medical daily. Branch ATORVASTATI Yes Take by Un sy N CALCIUM 423 mouth. ity of (ATORVASTAT 13:25: [place] IN ORAL) 10 Medical Branch metoprolol Yes 50mg Take 50 mg U nivers tartrate 50 -23 by mouth 2 it y of mg tablet 13:25: (two) [place] 10 times Medical daily. Branch apixaban Yes 5mg Take 5 mg Univ ers (ELIQUIS) 5 -23 by mouth 2 it y of mg tablet 13:25: (two) [place] 10 times Medical daily. Branch amiodarone 1-0 Yes 200mg Take 200 Un sy 200 mg 4-23 mg by ity of tablet 13:25: mouth [place] 10 daily. Medical Branch lisinopril 1-0 Yes 20mg Take 20 mg U nivers (PRINIVIL,Z 4-23 by mouth 2 it y of ESTRIL) 20 13:25: (two) [place] mg tablet 10 times Medical daily. Branch ATORVASTATI 2020-0 Yes Take by Un sy N CALCIUM 4-23 mouth. ity of (ATORVASTAT 13:25: [place] IN ORAL) 10 Medical Branch metoprolol 1-0 Yes 50mg Take 50 mg U nivers tartrate 50 4-23 by mouth 2 it y of mg tablet 13:25: (two) [place] 10 times Medical daily. Branch apixaban 1-0 Yes 5mg Take 5 mg Univ ers (ELIQUIS) 5 4-23 by mouth 2 it y of mg tablet 13:25: (two) [place] 10 times Medical daily. Branch amiodarone 1-0 Yes 200mg Take 200 Un sy 200 mg 4-23 mg by ity of tablet 13:25: mouth [place] 10 daily. Medical Branch lisinopril 2020-0 Yes 20mg Take 20 mg U nivers (PRINIVIL,Z 4-23 by mouth 2 it y of ESTRIL) 20 13:25: (two) [place] mg tablet 10 times Medical daily. Branch ATORVASTATI 2020-0 Yes Take by Un sy N CALCIUM 4-23 mouth. ity of (ATORVASTAT 13:25: [place] IN ORAL) 10 Medical Branch metoprolol 2021-0 Yes 50mg Take 50 mg U nivers tartrate 50 4-23 by mouth 2 it y of mg tablet 13:25: (two) [place] 10 times Medical daily. Branch apixaban 2021-0 Yes 5mg Take 5 mg Univ ers (ELIQUIS) 5 4-23 by mouth 2 it y of mg tablet 13:25: (two) [place] 10 times Medical daily. Branch amiodarone 2021-0 Yes 200mg Take 200 Un sy 200 mg 4-23 mg by ity of tablet 13:25: mouth [place] 10 daily. Medical Branch lisinopril 2021-0 Yes 20mg Take 20 mg U nivers (PRINIVIL,Z 4-23 by mouth 2 it y of ESTRIL) 20 13:25: (two) [place] mg tablet 10 times Medical daily. Branch ATORVASTATI 2020-0 Yes Take by Un sy N CALCIUM 4-23 mouth. ity of (ATORVASTAT 13:25: [place] IN ORAL) 10 Medical Branch metoprolol 2020-0 Yes 50mg Take 50 mg U nivers tartrate 50 4-23 by mouth 2 it y of mg tablet 13:25: (two) [place] 10 times Medical daily. Branch apixaban 2020-0 Yes 5mg Take 5 mg Univ ers (ELIQUIS) 5 4-23 by mouth 2 it y of mg tablet 13:25: (two) [place] 10 times Medical daily. Branch amiodarone 2020-0 Yes 200mg Take 200 Un sy 200 mg 4-23 mg by ity of tablet 13:25: mouth [place] 10 daily. Medical Branch lisinopril 2020-0 Yes 20mg Take 20 mg U nivers (PRINIVIL,Z 4-23 by mouth 2 it y of ESTRIL) 20 13:25: (two) [place] mg tablet 10 times Medical daily. Branch ATORVASTATI 0 Yes Take by Un sy N CALCIUM 4-23 mouth. ity of (ATORVASTAT 13:25: [place] IN ORAL) 10 Medical Branch metoprolol 2020-0 Yes 50mg Take 50 mg U nivers tartrate 50 4-23 by mouth 2 it y of mg tablet 13:25: (two) [place] 10 times Medical daily. Branch apixaban 2020-0 Yes 5mg Take 5 mg Univ ers (ELIQUIS) 5 4-23 by mouth 2 it y of mg tablet 13:25: (two) [place] 10 times Medical daily. Branch amiodarone 2020-0 Yes 200mg Take 200 Un sy 200 mg 4-23 mg by ity of tablet 13:25: mouth [place] 10 daily. Medical Branch lisinopril 2020-0 Yes 20mg Take 20 mg U nivers (PRINIVIL,Z 4-23 by mouth 2 it y of ESTRIL) 20 13:25: (two) [place] mg tablet 10 times Medical daily. Branch ATORVASTATI 2020-0 Yes Take by Un sy N CALCIUM 4-23 mouth. ity of (ATORVASTAT 13:25: [place] IN ORAL) 10 Medical Branch metoprolol 2020-0 Yes 50mg Take 50 mg U nivers tartrate 50 4-23 by mouth 2 it y of mg tablet 13:25: (two) [place] 10 times Medical daily. Branch apixaban 2020-0 Yes 5mg Take 5 mg Univ ers (ELIQUIS) 5 4-23 by mouth 2 it y of mg tablet 13:25: (two) [place] 10 times Medical daily. Branch amiodarone 2020-0 Yes 200mg Take 200 Un sy 200 mg 4-23 mg by ity of tablet 13:25: mouth [place] 10 daily. Medical Branch lisinopril 2020-0 Yes 20mg Take 20 mg U nivers (PRINIVIL,Z 4-23 by mouth 2 it y of ESTRIL) 20 13:25: (two) [place] mg tablet 10 times Medical daily. Branch ATORVASTATI 2020-0 Yes Take by Un sy N CALCIUM 4-23 mouth. ity of (ATORVASTAT 13:25: [place] IN ORAL) 10 Medical Branch metoprolol 2020-0 Yes 50mg Take 50 mg U nivers tartrate 50 4-23 by mouth 2 it y of mg tablet 13:25: (two) [place] 10 times Medical daily. Branch apixaban 2020-0 Yes 5mg Take 5 mg Univ ers (ELIQUIS) 5 4-23 by mouth 2 it y of mg tablet 13:25: (two) [place] 10 times Medical daily. Branch amiodarone 2020-0 Yes 200mg Take 200 Un sy 200 mg 4-23 mg by ity of tablet 13:25: mouth [place] 10 daily. Medical Branch lisinopril 2020-0 Yes 20mg Take 20 mg U nivers (PRINIVIL,Z 4-23 by mouth 2 it y of ESTRIL) 20 08:25: (two) [place] mg tablet 10 times Medical daily. Branch ATORVASTATI 2020-0 Yes Take by Un sy N CALCIUM 4-23 mouth. ity of (ATORVASTAT 08:25: [place] IN ORAL) 10 Medical Branch metoprolol 2020-0 Yes 50mg Take 50 mg U nivers tartrate 50 4-23 by mouth 2 it y of mg tablet 08:25: (two) [place] 10 times Medical daily. Branch apixaban 1-0 Yes 5mg Take 5 mg Univ ers (ELIQUIS) 5 4-23 by mouth 2 it y of mg tablet 08:25: (two) [place] 10 times Medical daily. Branch amiodarone 1-0 Yes 200mg Take 200 Un sy 200 mg 4-23 mg by ity of tablet 08:25: mouth [place] 10 daily. Medical Branch lisinopril 1-0 Yes 20mg Take 20 mg U nivers (PRINIVIL,Z 4-23 by mouth 2 it y of ESTRIL) 20 08:25: (two) [place] mg tablet 10 times Medical daily. Branch ATORVASTATI 2020-0 Yes Take by Un sy N CALCIUM 4-23 mouth. ity of (ATORVASTAT 08:25: [place] IN ORAL) 10 Medical Branch metoprolol 2020-0 Yes 50mg Take 50 mg U nivers tartrate 50 4-23 by mouth 2 it y of mg tablet 08:25: (two) [place] 10 times Medical daily. Branch apixaban 1-0 Yes 5mg Take 5 mg Univ ers (ELIQUIS) 5 4-23 by mouth 2 it y of mg tablet 08:25: (two) [place] 10 times Medical daily. Branch amiodarone 1-0 Yes 200mg Take 200 Un sy 200 mg 4-23 mg by ity of tablet 08:25: mouth [place] 10 daily. Medical Branch lisinopril 1-0 Yes 20mg Take 20 mg U nivers (PRINIVIL,Z 4-23 by mouth 2 it y of ESTRIL) 20 08:25: (two) [place] mg tablet 10 times Medical daily. Branch ATORVASTATI 1-0 Yes Take by Un sy N CALCIUM 4-23 mouth. ity of (ATORVASTAT 08:25: [place] IN ORAL) 10 Medical Branch metoprolol 2021-0 Yes 50mg Take 50 mg U nivers tartrate 50 4-23 by mouth 2 it y of mg tablet 08:25: (two) [place] 10 times Medical daily. Branch apixaban 1-0 Yes 5mg Take 5 mg Univ ers (ELIQUIS) 5 4-23 by mouth 2 it y of mg tablet 08:25: (two) [place] 10 times Medical daily. Branch amiodarone 2021-0 Yes 200mg Take 200 Un ys 200 mg 4-23 mg by ity of tablet 08:25: mouth [place] 10 daily. Medical Branch colchicine 2020- No [id number] .6mg Take 0.6 Univers 0.6 mg Cap 4-23 05-01 mg by ity of 00:00: 04:59 mouth 2 [place] 00 :00 (two) Medical times [place] daily for 7 days. colchicine 2020- No [id number] .6mg Take 0.6 Univers 0.6 mg Cap 4-23 05-01 mg by ity of 00:00: 04:59 mouth 2 [place] 00 :00 (two) Medical times [place] daily for 7 days. colchicine 2020- No [id number] .6mg Take 0.6 Univers 0.6 mg Cap 4-23 05-01 mg by ity of 00:00: 04:59 mouth 2 [place] 00 :00 (two) Medical [facility] daily for 7 days. predniSONE 2020- No 40mg 40 mg, Univ ers (DELTASONE) 4-17 -17 Oral, ity of tablet 40 01:30: 00:45 ONCE, 1 [place] mg 00 :00 dose, Fri Medical 09/05/20 at Branch 2030, AZAM HYDROcodone 2020- No 1{tbl} 1 tablet, Univers -acetaminop 17 -16 Oral, ity of hen (NORCO 00:45: 23:47 ONCE, 1 [place] as 5) 5-325 mg 00 :00 dose, Fri Med ical tablet 1 09/05/20 at [facility] h tablet 1945, AZAM predniSONE Yes [id number] Take 2 Univers 20 mg 4-16 tablets by ity of tablet 00:00: mouth [place] 00 daily for Medical 4 days. Branch ondansetron Yes [id number] 4mg Take 1 Univers (ZOFRAN 4-16 tablet by ity of ODT) 4 mg 00:00: mouth [place] disintegrat 00 every 8 Medic al ing tablet (eight) [place] hours as needed for Nausea and Vomiting (N/V). predniSONE Yes [id number] Take 2 Univers 20 mg 4-16 tablets by ity of tablet 00:00: mouth [place] 00 daily for Medical 4 days. Branch ondansetron 2020-0 Yes [id number] 4mg Take 1 Univers (ZOFRAN 4-16 tablet by ity of ODT) 4 mg 00:00: mouth [place] disintegrat 00 every 8 Medic al ing tablet (eight) Branch hours as needed for Nausea and Vomiting (N/V). predniSONE 2020-0 Yes [id number] Take 2 Univers 20 mg 4-16 tablets by ity of tablet 00:00: mouth [place] 00 daily for Medical 4 days. Branch ondansetron 2020-0 Yes [id number] 4mg Take 1 Univers (ZOFRAN 4-16 tablet by ity of ODT) 4 mg 00:00: mouth [place] disintegrat 00 every 8 Medic al ing tablet (eight) Branch hours as needed for Nausea and Vomiting (N/V). predniSONE 2020-0 Yes [id number] Take 2 Univers 20 mg 4-16 tablets by ity of tablet 00:00: mouth [place] 00 daily for Medical 4 days. Branch ondansetron 2020-0 Yes [id number] 4mg Take 1 Univers (ZOFRAN 4-16 tablet by ity of ODT) 4 mg 00:00: mouth [place] disintegrat 00 every 8 Medic al ing tablet (eight) Branch hours as needed for Nausea and Vomiting (N/V). predniSONE 2020-0 Yes [id number] Take 2 Univers 20 mg 4-16 tablets by ity of tablet 00:00: mouth [place] 00 daily for Medical 4 days. Branch ondansetron 2020-0 Yes [id number] 4mg Take 1 Univers (ZOFRAN 4-16 tablet by ity of ODT) 4 mg 00:00: mouth [place] disintegrat 00 every 8 Medic al ing tablet (eight) Branch hours as needed for Nausea and Vomiting (N/V). predniSONE 2020-0 Yes [id number] Take 2 Univers 20 mg 4-16 tablets by ity of tablet 00:00: mouth [place] 00 daily for Medical 4 days. Branch ondansetron 2020-0 Yes [id number] 4mg Take 1 Univers (ZOFRAN 4-16 tablet by ity of ODT) 4 mg 00:00: mouth [place] disintegrat 00 every 8 Medic al ing tablet (eight) Branch hours as needed for Nausea and Vomiting (N/V). predniSONE 2020-0 Yes [id number] Take 2 Univers 20 mg 4-16 tablets by ity of tablet 00:00: mouth [place] 00 daily for Medical 4 days. Branch ondansetron 2020-0 Yes [id number] 4mg Take 1 Univers (ZOFRAN 4-16 tablet by ity of ODT) 4 mg 00:00: mouth [place] disintegrat 00 every 8 Medic al ing tablet (eight) Branch hours as needed for Nausea and Vomiting (N/V). predniSONE 2020-0 Yes [id number] Take 2 Univers 20 mg 4-16 tablets by ity of tablet 00:00: mouth [place] 00 daily for Medical 4 days. Branch ondansetron 2020-0 Yes [id number] 4mg Take 1 Univers (ZOFRAN 4-16 tablet by ity of ODT) 4 mg 00:00: mouth [place] disintegrat 00 every 8 Medic al ing tablet (eight) Branch hours as needed for Nausea and Vomiting (N/V). predniSONE 2020-0 Yes [id number] Take 2 Univers 20 mg 4-16 tablets by ity of tablet 00:00: mouth [place] 00 daily for Medical 4 days. Branch ondansetron 2020-0 Yes [id number] 4mg Take 1 Univers (ZOFRAN 4-16 tablet by ity of ODT) 4 mg 00:00: mouth [place] disintegrat 00 every 8 Medic al ing tablet (eight) Branch hours as needed for Nausea and Vomiting (N/V). predniSONE 2020-0 Yes [id number] Take 2 Univers 20 mg 4-16 tablets by ity of tablet 00:00: mouth [place] 00 daily for Medical 4 days. Branch ondansetron 2020-0 Yes [id number] 4mg Take 1 Univers (ZOFRAN 4-16 tablet by ity of ODT) 4 mg 00:00: mouth [place] disintegrat 00 every 8 Medic al ing tablet (eight) Branch hours as needed for Nausea and Vomiting (N/V). predniSONE 2020-0 Yes [id number] Take 2 Univers 20 mg 4-16 tablets by ity of tablet 00:00: mouth [place] 00 daily for Medical 4 days. Branch ondansetron 2020-0 Yes [id number] 4mg Take 1 Univers (ZOFRAN 4-16 tablet by ity of ODT) 4 mg 00:00: mouth [place] disintegrat 00 every 8 Medic al ing tablet (eight) Branch hours as needed for Nausea and Vomiting (N/V). dicyclomine 2020-0 Yes TAKE 1 Univ ers 10 mg 4-01 CAPSULE BY ity of capsule 00:00: MOUTH [place] 00 TWICE Medical DAILY FOR Branch 10 DAYS. dicyclomine 2020-0 Yes TAKE 1 Univ ers 10 mg 4-01 CAPSULE BY ity of capsule 00:00: MOUTH [place] 00 TWICE Medical DAILY FOR Branch 10 DAYS. dicyclomine 2020-0 Yes TAKE 1 Univ ers 10 mg 4-01 CAPSULE BY ity of capsule 00:00: MOUTH [place] 00 TWICE Medical DAILY FOR Branch 10 DAYS. dicyclomine 2020-0 Yes TAKE 1 Univ ers 10 mg 4-01 CAPSULE BY ity of capsule 00:00: MOUTH [place] 00 TWICE Medical DAILY FOR Branch 10 DAYS. dicyclomine 2020-0 Yes TAKE 1 Univ ers 10 mg 4-01 CAPSULE BY ity of capsule 00:00: MOUTH [place] 00 TWICE Medical DAILY FOR Branch 10 DAYS. dicyclomine 2020-0 Yes TAKE 1 Univ ers 10 mg 4-01 CAPSULE BY ity of capsule 00:00: MOUTH [place] 00 TWICE Medical DAILY FOR Branch 10 DAYS. dicyclomine 2020-0 Yes TAKE 1 Univ ers 10 mg 4-01 CAPSULE BY ity of capsule 00:00: MOUTH [place] 00 TWICE Medical DAILY FOR Branch 10 DAYS. dicyclomine 2020-0 Yes TAKE 1 Univ ers 10 mg 4-01 CAPSULE BY ity of capsule 00:00: MOUTH [place] 00 TWICE Medical DAILY FOR Branch 10 DAYS. dicyclomine 2020-0 Yes TAKE 1 Univ ers 10 mg 4-01 CAPSULE BY ity of capsule 00:00: MOUTH [place] 00 TWICE Medical DAILY FOR Branch 10 DAYS. dicyclomine 2020-0 Yes TAKE 1 Univ ers 10 mg 4-01 CAPSULE BY ity of capsule 00:00: MOUTH [place] 00 TWICE Medical DAILY FOR Branch 10 DAYS. lisinopril 2019-0 Yes 20mg Take 20 mg U nivers (PRINIVIL,Z 6-03 by mouth 2 it y of ESTRIL) 20 19:25: (two) [place] mg tablet 07 times Medical daily. Branch ATORVASTATI 2019-0 Yes Take by Un sy N CALCIUM 6-03 mouth. ity of (ATORVASTAT 19:25: [place] IN ORAL) 07 Medical Branch metoprolol 2020-0 Yes 50mg Take 50 mg U nivers tartrate 50 6-03 by mouth 2 it y of mg tablet 19:25: (two) [place] 07 times Medical daily. Branch apixaban 2020-0 Yes 5mg Take 5 mg Univ ers (ELIQUIS) 5 6-03 by mouth 2 it y of mg tablet 19:25: (two) [place] 07 times Medical daily. Branch amiodarone 2020-0 Yes 200mg Take 200 Un sy 200 mg 6-03 mg by ity of tablet 19:25: mouth [place] 07 daily. Medical Branch lisinopril 2020-0 Yes 20mg Take 20 mg U nivers (PRINIVIL,Z 6-03 by mouth 2 it y of ESTRIL) 20 19:25: (two) [place] mg tablet 07 times Medical daily. Branch ATORVASTATI 2020-0 Yes Take by Un sy N CALCIUM 6-03 mouth. ity of (ATORVASTAT 19:25: [place] IN ORAL) 07 Medical Branch metoprolol 2020-0 Yes 50mg Take 50 mg U nivers tartrate 50 6-03 by mouth 2 it y of mg tablet 19:25: (two) [place] 07 times Medical daily. Branch apixaban 2020-0 Yes 5mg Take 5 mg Univ ers (ELIQUIS) 5 6-03 by mouth 2 it y of mg tablet 19:25: (two) [place] 07 times Medical daily. Branch amiodarone 2020-0 Yes 200mg Take 200 Un sy 200 mg 6-03 mg by ity of tablet 19:25: mouth [place] 07 daily. Medical Branch lisinopril 2020-0 Yes 20mg Take 20 mg U nivers (PRINIVIL,Z 6-03 by mouth 2 it y of ESTRIL) 20 19:25: (two) [place] mg tablet 07 times Medical daily. Branch ATORVASTATI 2020-0 Yes Take by Un sy N CALCIUM 6-03 mouth. ity of (ATORVASTAT 19:25: [place] IN ORAL) 07 Medical Branch metoprolol 2020-0 Yes 50mg Take 50 mg U nivers tartrate 50 6-03 by mouth 2 it y of mg tablet 19:25: (two) [place] 07 times Medical daily. Branch apixaban 2020-0 Yes 5mg Take 5 mg Univ ers (ELIQUIS) 5 6-03 by mouth 2 it y of mg tablet 19:25: (two) [place] 07 times Medical daily. Branch amiodarone 2020-0 Yes 200mg Take 200 Un sy 200 mg 6-03 mg by ity of tablet 19:25: mouth [place] 07 daily. Medical Branch lisinopril 2020-0 Yes 20mg Take 20 mg U nivers (PRINIVIL,Z 6-03 by mouth 2 it y of ESTRIL) 20 19:25: (two) [place] mg tablet 07 times Medical daily. Branch ATORVASTATI 2020-0 Yes Take by Un sy N CALCIUM 6-03 mouth. ity of (ATORVASTAT 19:25: [place] IN ORAL) 07 Medical Branch metoprolol 2020-0 Yes 50mg Take 50 mg U nivers tartrate 50 6-03 by mouth 2 it y of mg tablet 19:25: (two) [place] 07 times Medical daily. Branch apixaban 2020-0 Yes 5mg Take 5 mg Univ ers (ELIQUIS) 5 6-03 by mouth 2 it y of mg tablet 19:25: (two) [place] 07 times Medical daily. Branch amiodarone 2020-0 Yes 200mg Take 200 Un sy 200 mg 6-03 mg by ity of tablet 19:25: mouth [place] 07 daily. Medical Branch sulfur 2020-0 2020- No 5mL 5 mL, Univers hexafluorid 610-23 Intravenou i ty of e microsphr 19:00: 16:00 s, ONCE, 1 [place] (LUMASON) 00 :00 dose, Tue Medic al injection 5 10/24/19 at [facility] mL 1400, Routine metoprolol 2020-0 Yes 50mg 50 mg, Unive rs tartrate 6-03 Oral, ity of (LOPRESSOR) 14:00: DAILY, [place] tablet 50 00 First dose Medi jil mg on Tue Branch 10/24/19 at 0900, Until Discontinu ed, Routine amiodarone 2020-0 Yes 200mg 200 mg, Uni vers (PACERONE) 6-03 Oral, ity of tablet 200 14:00: DAILY, [place] mg 00 First dose Medical on Tue Branch 10/24/19 at 0900, Until Discontinu ed, Routine lisinopril 2020-0 Yes 20mg 20 mg, Unive rs (PRINIVIL,Z 6-03 Oral, BID, it y of ESTRIL) 01:00: [place] tablet 20 00 on [facility] Medical mg 10/23/19 at [place] 1999, Until Discontinu ed, Routine apixaban 2020-0 Yes 5mg 5 mg, Univers (ELIQUIS) 10-23 Oral, BID, ity of tablet 5 mg 01:00: First dose [place] 00 on [facility] 10/23/19 at [place] 1999, Until Discontinu ed, Routine maalox:diph 2019-0 2020- No 15mL 15 mL, Uni vers enhydrAMINE 10-22 Oral, ity of :lidocaine 23:30: 00:01 ONCE, 1 [place] as 2 % viscous 00 :00 dose, [facility] Med ical 1:1:1 10/23/19 at [place] (FIRST-MOUT 183, [facility]) Routine oral suspension 15 mL atorvastati 2019-0 Yes 10mg 10 mg, Univ ers n (LIPITOR) 10-22 Oral, QPM, it y of tablet 10 22:00: [place] mg 00 on [facility] 10/23/19 at [place] 1700, Until Discontinu ed pantoprazol 2019-0 Yes 40mg 40 mg, Univ ers e 10-22 Oral, BID, ity of (PROTONIX) 21:30: First dose [place] EC tablet on [facility] 40 mg 10/23/19 at [place] 1630, Until Discontinu ed, Routine colchicine 2019-0 2020- No Take by Un sy (MITIGARE) 10-22-02 mouth. ity of 0.6 mg Cap 21:15: 00:00 [place] 59 :00 [facility] carvedilol 2019-0 2020- No 6.25mg Take 6.25 Univers (COREG) 10-22 06-02 mg by ity of 6.25 mg 21:15: 00:00 mouth 2 [place] tablet 59 :00 (two) Medical times [place] daily with meals. Nitrofurant 2019-0 2020- No 100mg Take 100 Univers oin&Nit. 10-22 06-02 mg by ity of Macrocryst 21:15: 00:00 mouth 2 [place] as 100 mg 59 :00 (two) Medical capsule times [place] daily. ondansetron 2019-0 Yes 4mg 4 mg, Slow Univers (ZOFRAN 10-22 IV Push, ity of (PF)) 20:50: Q6HPRN, [place] injection 4 40 Starting Medi jil mg 10/23/19 Branch at 1550, Until Discontinu ed, Routine, Nausea and Vomiting (N/V) phenazopyri 2020- No 200mg Take 1 Un sy dine 200 mg 3-04 -02 tablet by it y of tablet 00:00: 00:00 mouth 3 [place] 00 :00 (three) Medical times Branch daily. traMADOL 50 2016-05 Yes 50mg Take 1 Univ ers mg tablet 0-04 tablet by ity o f 00:00: mouth [place] 00 every 8 Medical (eight) Branch hours as needed for Pain (scale 4-6). traMADOL 50 2016-05 Yes 50mg Take 1 Univ ers mg tablet 0-04 tablet by ity o f 00:00: mouth [place] 00 every 8 Medical (eight) Branch hours as needed for Pain (scale 4-6). traMADOL 50 2016-05 Yes 50mg Take 1 Univ ers mg tablet 0-04 tablet by ity o f 00:00: mouth [place] 00 every 8 Medical (eight) Branch hours as needed for Pain (scale 4-6). traMADOL 50 2016-05 Yes 50mg Take 1 Univ ers mg tablet 0-04 tablet by ity o f 00:00: mouth [place] 00 every 8 Medical (eight) Branch hours as needed for Pain (scale 4-6). traMADOL 50 2016-05 Yes 50mg Take 1 Univ ers mg tablet 0-04 tablet by ity o f 00:00: mouth [place] 00 every 8 Medical (eight) Branch hours as needed for Pain (scale 4-6). traMADOL 50 2016-05 Yes 50mg Take 1 Univ ers mg tablet 0-04 tablet by ity o f 00:00: mouth [place] 00 every 8 Medical (eight) Branch hours as needed for Pain (scale 4-6). traMADOL 50 2016-05 Yes 50mg Take 1 Univ ers mg tablet 0-04 tablet by ity o f 00:00: mouth [place] 00 every 8 Medical (eight) Branch hours as needed for Pain (scale 4-6). traMADOL 50 2016-05 Yes 50mg Take 1 Univ ers mg tablet 0-04 tablet by ity o f 00:00: mouth [place] 00 every 8 Medical (eight) Branch hours as needed for Pain (scale 4-6). traMADOL 50 2016-05 Yes 50mg Take 1 Univ ers mg tablet 0-04 tablet by ity o f 00:00: mouth [place] 00 every 8 Medical (eight) Branch hours as needed for Pain (scale 4-6). traMADOL 50 2016-05 Yes 50mg Take 1 Univ ers mg tablet 0-04 tablet by ity o f 00:00: mouth [place] 00 every 8 Medical (eight) Branch hours as needed for Pain (scale 4-6). traMADOL 50 2016-05 Yes 50mg Take 1 Univ ers mg tablet 0-04 tablet by ity o f 00:00: mouth [place] 00 every 8 Medical (eight) Branch hours as needed for Pain (scale 4-6). traMADOL 50 2016-05 Yes 50mg Take 1 Univ ers mg tablet 0-04 tablet by ity o f 00:00: mouth [place] 00 every 8 Medical (eight) Branch hours as needed for Pain (scale 4-6). traMADOL 50 2016-05 Yes 50mg Take 1 Univ ers mg tablet 0-04 tablet by ity o f 00:00: mouth [place] 00 every 8 Medical (eight) Branch hours as needed for Pain (scale 4-6). traMADOL 50 2016-05 Yes 50mg Take 1 Univ ers mg tablet 0-04 tablet by ity o f 00:00: mouth [place] 00 every 8 Medical (eight) Branch hours as needed for Pain (scale 4-6). MIRALAX 17 Yes 17g Take 17 g Un sy gram/dose 9-01 by mouth 2 ity of powder 00:00: (two) [place] 00 times Medical daily. Branch MIRALAX 17 Yes 17g Take 17 g Un sy gram/dose 9-01 by mouth 2 ity of powder 00:00: (two) [place] 00 times Medical daily. Branch MIRALAX 17 Yes 17g Take 17 g Un sy gram/dose 9-01 by mouth 2 ity of powder 00:00: (two) [place] 00 times Medical daily. Branch MIRALAX 17 Yes 17g Take 17 g Un sy gram/dose 9-01 by mouth 2 ity of powder 00:00: (two) [place] 00 times Medical daily. Branch MIRALAX 17 Yes 17g Take 17 g Un sy gram/dose 9-01 by mouth 2 ity of powder 00:00: (two) [place] 00 times Medical daily. Branch MIRALAX 17 2016-0 Yes 17g Take 17 g Un sy gram/dose 9-01 by mouth 2 ity of powder 00:00: (two) [place] 00 times Medical daily. Branch MIRALAX 17 2016-0 Yes 17g Take 17 g Un sy gram/dose 9-01 by mouth 2 ity of powder 00:00: (two) [place] 00 times Medical daily. Branch MIRALAX 17 2016-0 Yes 17g Take 17 g Un sy gram/dose 9-01 by mouth 2 ity of powder 00:00: (two) [place] 00 times Medical daily. Branch MIRALAX 17 Yes 17g Take 17 g Un sy gram/dose 9-01 by mouth 2 ity of powder 00:00: (two) [place] 00 times Medical daily. Branch MIRALAX 17 Yes 17g Take 17 g Un sy gram/dose 9-01 by mouth 2 ity of powder 00:00: (two) [place] 00 times Medical daily. Branch MIRALAX 17 0 Yes 17g Take 17 g Un sy gram/dose 9-01 by mouth 2 ity of powder 00:00: (two) [place] 00 times Medical daily. Branch MIRALAX 17 0 Yes 17g Take 17 g Un sy gram/dose 9-01 by mouth 2 ity of powder 00:00: (two) [place] 00 times Medical daily. Branch MIRALAX 17 0 Yes 17g Take 17 g Un sy gram/dose 9-01 by mouth 2 ity of powder 00:00: (two) [place] 00 times Medical daily. Branch MIRALAX 17 0 Yes 17g Take 17 g Un sy gram/dose 9-01 by mouth 2 ity of powder 00:00: (two) [place] 00 times Medical daily. Branch omeprazole 2017-0 Yes Univers 40 mg 5-30 ity of capsule 00:00: [place] 00 [facility] omeprazole 2017-0 Yes Univers 40 mg 5-30 ity of capsule 00:00: [place] 00 [facility] omeprazole 2017-0 Yes Univers 40 mg 5-30 ity of capsule 00:00: [place] 00 [facility] [place] omeprazole 2017-0 Yes Univers 40 mg 5-30 ity of capsule 00:00: [place] 00 Medical Branch omeprazole 2017-0 Yes Univers 40 mg 5-30 ity of capsule 00:00: [place] [id number] Medical Branch omeprazole 2017-0 Yes Univers 40 mg 5-30 ity of capsule 00:00: [place] [address] Medical Branch omeprazole 2017-0 Yes Univers 40 mg 5-30 ity of capsule 00:00: [place] [address] Medical Branch omeprazole 2017-0 Yes Univers 40 mg 5-30 ity of capsule 00:00: [place] [address] Medical Branch omeprazole 2017-0 Yes Univers 40 mg 5-30 ity of capsule 00:00: [place] [address] Medical Branch omeprazole 2017-0 Yes Univers 40 mg 5-30 ity of capsule 00:00: [place] [address] Medical Branch omeprazole 2017-0 Yes Univers 40 mg 5-30 ity of capsule 00:00: [place] [address] Medical Branch omeprazole 2017-0 Yes Univers 40 mg 5-30 ity of capsule 00:00: [place] [address] Medical Branch omeprazole 2017-0 Yes Univers 40 mg 5-30 ity of capsule 00:00: [place] [address] Medical Branch omeprazole 2017-0 Yes Univers 40 mg 5-30 ity of capsule 00:00: [place] [address] Medical Branch indomethaci 2017-0 2020- No Unive rs n 25 mg 5-23 06-02 ity of capsule 00:00: 00:00 [place] 00 :00 Medical Branch allopurinol 2017-0 2020- No Unive rs 300 mg 5-18 06-02 ity of tablet 00:00: 00:00 [place] 00 :00 Medical Branch Immunizations Ordered Filled Immunization Date Status Comments [facility] e Immunization Name Name SARS-COV-2 COVID-19 2021-03-23 Completed Unive rsity of MODERNA BOOSTER 00:00:00 [facility] VACCINE Branch SARS-COV-2 COVID-19 2021-03-23 Completed Unive rsity of MODERNA BOOSTER 00:00:00 [facility] VACCINE Branch SARS-COV-2 COVID-19 2020-07-26 Completed Unive rsity of MODERNA VACCINE 00:00:00 [facility] SARS-COV-2 COVID-19 2020-07-26 Completed Unive rsity of MODERNA VACCINE 00:00:00 [facility] SARS-COV-2 COVID-19 2020-07-26 Completed Unive rsity of MODERNA VACCINE 00:00:00 [place] Med ical Branch SARS-COV-2 COVID-19 2020-07-26 Completed Unive rsity of MODERNA VACCINE 00:00:00 [place] Med ical Branch SARS-COV-2 COVID-19 2020-07-26 Completed Unive rsity of MODERNA VACCINE 00:00:00 [place] Med ical Branch SARS-COV-2 COVID-19 2020-07-26 Completed Unive rsity of MODERNA VACCINE 00:00:00 [place] Med ical Branch SARS-COV-2 COVID-19 2020-07-26 Completed Unive rsity of MODERNA VACCINE 00:00:00 [place] Med ical Branch SARS-COV-2 COVID-19 2020-07-26 Completed Unive rsity of MODERNA VACCINE 00:00:00 [place] Med ical Branch SARS-COV-2 COVID-19 2020-07-26 Completed Unive rsity of MODERNA VACCINE 00:00:00 [place] Med ical Branch SARS-COV-2 COVID-19 2020-07-26 Completed Unive rsity of MODERNA VACCINE 00:00:00 [place] Med ical Branch SARS-COV-2 COVID-19 2020-07-26 Completed Unive rsity of MODERNA VACCINE 00:00:00 [place] Med ical Branch SARS-COV-2 COVID-19 2020-07-26 Completed Unive rsity of MODERNA VACCINE 00:00:00 [place] Med ical Branch SARS-COV-2 COVID-19 2020-06-28 Completed Unive rsity of MODERNA VACCINE 00:00:00 [place] Med ical Branch SARS-COV-2 COVID-19 2020-06-28 Completed Unive rsity of MODERNA VACCINE 00:00:00 [place] Med ical Branch SARS-COV-2 COVID-19 2020-06-28 Completed Unive rsity of MODERNA VACCINE 00:00:00 [place] Med ical Branch SARS-COV-2 COVID-19 2020-06-28 Completed Unive rsity of MODERNA VACCINE 00:00:00 [place] Med ical Branch SARS-COV-2 COVID-19 2020-06-28 Completed Unive rsity of MODERNA VACCINE 00:00:00 [place] Med ical Branch SARS-COV-2 COVID-19 2020-06-28 Completed Unive rsity of MODERNA VACCINE 00:00:00 [facility] Branch SARS-COV-2 COVID-19 2020-06-28 Completed Unive rsity of MODERNA VACCINE 00:00:00 [facility] Branch SARS-COV-2 COVID-19 2020-06-28 Completed Unive rsity of MODERNA VACCINE 00:00:00 [facility] Branch SARS-COV-2 COVID-19 2020-06-28 Completed Unive rsity of MODERNA VACCINE 00:00:00 [facility] Branch SARS-COV-2 COVID-19 2020-06-28 Completed Unive rsity of MODERNA VACCINE 00:00:00 [facility] Branch SARS-COV-2 COVID-19 2020-06-28 Completed Unive rsity of MODERNA VACCINE 00:00:00 [facility] SARS-COV-2 COVID-19 2020-06-28 Completed Unive rsity of MODERNA VACCINE 00:00:00 [facility] Vital Signs Vital Name Observation Time Observation Value Comments Source Systolic blood 2021-03-13 01:00:00 120 mm[Hg] Univer sity of pressure [facility] Diastolic blood 2021-03-13 01:00:00 54 mm[Hg] Unive rsity of pressure [facility] Heart rate 2021-03-13 01:00:00 53 /min [facility] Respiratory rate 2021-03-13 01:00:00 17 /min [facility] in 2021-03-13 01:00:00 98 /min [facility] Arterial blood by [facility] Pulse oximetry Branch Body temperature 2021-03-12 21:26:00 36.67 [facility] Body weight 2021-03-12 21:26:00 142.429 kg [facility] BMI 2021-03-12 21:26:00 46.37 kg/m2 [facility] Systolic blood 2020-12-24 17:13:00 178 mm[Hg] Univer sity of pressure [facility] Diastolic blood 2020-12-24 17:13:00 89 mm[Hg] Unive rsity of pressure [facility] Heart rate 2020-12-24 17:13:00 54 /min [facility] Body temperature 2020-12-24 17:13:00 37.06 Selina [facility] [place] [facility] Respiratory rate 2020-12-24 17:13:00 18 /min [facility] ers[facility] [place] [facility] Body height 2020-12-24 17:13:00 175.3 cm [facility] [place] [facility] Body weight 2020-12-24 17:13:00 142.429 kg [facility] [place] [facility] BMI 2020-12-24 17:13:00 46.37 kg/m2 [facility] [place] [facility] Oxygen saturation in 2020-12-24 17:13:00 99 /min University of Arterial blood by [facility] [facility] Pulse oximetry Branch Systolic blood 2020-10-07 21:03:00 129 mm[Hg] Univer sity of pressure [place] [facility] [place] Diastolic blood 2020-10-07 21:03:00 78 mm[Hg] Unive rsity of pressure [facility] Heart rate 2020-10-07 21:03:00 61 /min [facility] [place] [facility] Body height 2020-10-07 20:56:00 175.3 cm [facility] [place] [facility] Body weight 2020-10-07 20:56:00 138.347 kg [facility] [place] [facility] BMI 2020-10-07 20:56:00 45.04 kg/m2 [facility] [place] [facility] Systolic blood 2020-09-12 13:27:00 134 mm[Hg] Univer sity of pressure [place] [facility] Diastolic blood 2020-09-12 13:27:00 81 mm[Hg] Unive rsity of pressure [facility] Branch Heart rate 2020-09-12 13:27:00 52 /min Universi ty [facility] [place] [facility] Respiratory rate 2020-09-12 13:25:00 20 /min Univ ersity of [facility] Branch Body height 2020-09-12 13:25:00 175.3 cm Universi ty [facility] [place] [facility] Body weight 2020-09-12 13:25:00 138.347 kg [facility] [place] [facility] BMI 2020-09-12 13:25:00 45.04 kg/m2 Universi ty of [facility] Branch Systolic blood 2020-09-06 00:00:00 138 mm[Hg] Univer sity of pressure [place] [facility] Diastolic blood 2020-09-06 00:00:00 83 mm[Hg] Unive rsity of pressure [facility] Heart rate 2020-09-06 00:00:00 52 /min Universi ty of [facility] Respiratory rate 2020-09-06 00:00:00 16 /min Univ ersity of [facility] Oxygen saturation in 2020-09-06 00:00:00 97 /min University of Arterial blood by [facility] [facility] Pulse oximetry Branch Body temperature 2020-09-05 22:15:19 37.11 Selina [facility] [address] Body height 2020-09-05 22:08:00 175.[address] [facility] Body weight 2020-09-05 22:08:[address] [facility] BMI 2020-09-05 22:08:00 45.19 kg/m2 Universi ty [facility] Systolic blood 2019-10-24 14:52:00 151 mm[Hg] Univer sity of pressure [facility] Diastolic blood 2019-10-24 14:52:00 85 mm[Hg] Unive rsity of pressure [facility] Heart rate 2019-10-24 14:52:00 57 /min Universi ty of [facility] Oxygen saturation in 2019-10-24 14:52:00 93 /min University of Arterial blood by [facility] Pulse oximetry Branch Body temperature 2019-10-24 12:21:[address] [facility] 2019-10-24 12:21:00 18 /min Univ ersity of [facility] Body weight 2019-10-24 08:57:00 144.244 kg [employer] Universi ty of [facility] BMI 2019-10-24 08:57:00 46.96 kg/m2 Universi ty of [facility] Body height 2019-10-23 22:18:00 175.3 cm Universi ty [facility] Procedures Procedure Date / Time Performing Clinician Source Performed SARS-COV-2 COVID-19 2021-03-23 13:45:47 Doctor Unassigned, No [facility] [place] VACCINE Name Medical Branch BOOSTER,0.25ML,IM (MODERNA) TROPONIN I 2021-03-13 00:32:00 Tammy Bailey [facility] TROPONIN I 2021-03-12 22:21:00 Tammy Bailey [facility] COMP. METABOLIC PANEL 2021-03-12 22:21:00 Tammy Bailey [facility] ([id number]) Medical [place] CBC WITH DIFF 2021-03-12 22:21:00 Tammy Bailey [facility] N-TERMINAL PRO-BNP 2021-03-12 22:21:00 Tammy Bailey [facility] XR CHEST 1 VW 2021-03-12 22:06:03 Tammy Bailey [facility] CONSENT/REFUSAL FOR 2021-03-12 21:20:07 Doctor Unassigned, No [facility] [place] DIAGNOSIS AND TREATMENT Name Medical Branch XR CHEST 1 VW 2020-12-24 18:14:01 Singer [facility] TROPONIN I 2020-12-24 17:28:00 Singer [facility] COMP. METABOLIC PANEL 2020-12-24 17:28:00 Singer Erwin [facility] ([id number]) [facility] CBC WITH DIFF 2020-12-24 17:28:00 Singer [facility] URINALYSIS 2020-12-24 17:18:00 [place] [facility] CONSENT/REFUSAL FOR 2020-12-24 16:51:31 Doctor Unassigned, No [facility] [place] DIAGNOSIS AND TREATMENT Name [facility] XR TOES 2 VW RIGHT 2020-10-07 20:59:10 Missy Joy [facility] ASSIGNMENT OF BENEFITS 2020-09-12 13:52:01 Doctor Unassigned, No [facility] Name [facility] XR FOOT 3+ VW RIGHT 2020-09-05 23:47:50 Jonah Penny [facility] CONSENT/REFUSAL FOR 2020-09-05 21:59:34 Doctor Unassigned, No [facility] [place] DIAGNOSIS AND TREATMENT Name [facility] BASIC METABOLIC PANEL 2019-10-24 09:00:00 Malia Roque [facility] [place] (NA, K, CL, CO2, Medical Branch GLUCOSE, BUN, CREATININE, CA) CBC WITH DIFFERENTIAL 2019-10-24 09:00:00 Malia Roque Un [facility] TROPONIN I 2019-10-24 04:48:00 Malia Roque [facility] TROPONIN I 2019-10-23 22:36:00 Malia Roque [facility] COVID-19 (ID NOW RAPID 2019-10-23 19:37:00 Erwin Galicia [facility] TESTING) Medical Branch XR CHEST 1 VW 2019-10-23 18:02:40 Singer [facility] MAGNESIUM 2019-10-23 17:59:00 Singer [facility] TROPONIN I 2019-10-23 17:59:00 Singer [facility] THYROID STIMULATING 2019-10-23 17:59:00 Malia Roque [facility] HORMONE [facility] COMP. METABOLIC PANEL 2019-10-23 17:59:00 Singer [facility] ([id number]) [facility] [place] LIPID PANEL 2019-10-23 17:59:00 Singer [facility] ([id number])(TOTAL Medical Branch CHOLESTEROL, TRIGLYCERIDES, HDL) CBC WITH DIFFERENTIAL 2019-10-23 17:59:00 Erwin Galicia [facility] GLYCOSYLATED HEMOGLOBIN 2019-10-23 17:59:00 Malia Roque [facility] ([id number]) [facility] [place] PROTHROMBIN TIME / INR 2019-10-23 17:59:00 Erwin Galicia [facility] N-TERMINAL PRO-BNP 2019-10-23 17:59:00 Erwin Galicia [facility] EKG-12 LEAD 2019-10-23 17:48:12 Singer [facility] EKG-12 LEAD 2019-10-23 17:40:36 [facility] CONSENT/REFUSAL FOR 2019-10-23 17:31:08 Doctor Unassigned, No Un [facility] DIAGNOSIS AND TREATMENT Name Medical Branch Encounters Start End Encounter Admission Attending Care Care Encounter Source Date/Time Date/Time Type Type Clinicians Facility Department ID 2021-03-23 Emergency [facility] [id number] Univers 13:05:45 ity [facility] 2021-05-25 2021-05-25 Laboratory Only, Ang Db Test [facility] 1.2.8 40.114 [id number] Univers 17:45:00 18:00:00 Only Mary Shaver [facility] [id number] ity of [place] [id number] Aaron as FARZANEH?BLEA [id number] Az dical KNEY [address] [place] MEDICAL OFFICE [facility] 2021-05-25 2021-05-25 Outpatient R [facility] [id number] Univers 17:45:00 17:45:00 [id number] ity [facility] 2021-05-25 2021-05-25 Outpatient R SIVAKUMAR [facility] [id number] Univers 17:45:00 17:45:00 MARY [facility] 2021-03-23 2021-03-23 Imm/Inj Nurse, Adc Pob Immunization [facility] [id number] Univers 09:00:00 09:10:00 Visit Hermilo Boo 350.1.13 .10 ity [facility] [id number] [place] [facility] [id number] Az dical [facility] [address] [facility] 2021-03-23 2021-03-23 Outpatient R RAJEEV [facility] [id number] Univers 09:00:00 09:00:00 HERMILO [facility] 2021-03-12 2021-03-12 [facility] [id number] Univers 16:27:00 20:42:00 Tammy [place] [id number] ity [place] 4[place].2.686 [place] [id number] [facility] 084 [place] 2021-03-12 2021-03-12 Emergency X LEO [facility] ERT [id number] Univers 16:27:00 20:42:00 TAMMY you [facility] 2020-12-24 2020-12-24 Emergency Singer [facility] [id number] Univers 12:29:00 15:25:00 Erwin [place] [id number] i ty of [place] [id number] [place] [facility] [id number] [facility] 084 [place] 2020-10-07 2020-10-07 Hospital [facility] [id number] Univers 15:59:10 23:59:00 Encounter [facility] [id number] ity of Surgical [id number] Aaron as Specialti [phone] Me dical es 809 [facility] 2020-10-07 2020-10-07 Office [facility] [id number] Univers 15:45:02 16:00:02 Visit [facility] [id number] it y of Surgical [id number] Aaron as Specialti [phone] Az dical es 198 [facility] 2020-10-07 2020-10-07 [facility] [id number] Univers 16:00:00 16:00:00 MISSY [id number] ity [facility] 2020-10-07 2020-10-07 [facility] [id number] Univers 16:00:00 16:00:00 [facility] [place] [facility] 2020-09-12 2020-09-12 Office [facility] [id number] Univers 08:17:28 08:32:28 Visit [facility] [id number] it y of Surgical [id number] Aaron as Specialti [id number] Az dical es 198 [facility] 2020-09-12 2020-09-12 [facility] [id number] Univers 08:30:00 08:30:00 [facility]SY [facility] [place] [facility] 2020-09-12 2020-09-12 Orders Doctor MENA [id number] Univers 00:00:00 00:00:00 Only Unassigned, GILDARDO [id number] ity of [place] [facility] 4.2.7.2.686 Aaron as [id number] [facility] 009 Branch 2020-09-05 2020-09-05 Emergency Jonah Penny [facility] [id number] Univers 18:18:00 20:31:00 T Harvinder [id number] i ty [id number] [place] [id number] [facility] 084 Branch 2020-09-05 2020-09-05 Emergency X [facility] ERT [id number] Univers 17:01:00 17:01:[address] [facility] 2020-09-05 2020-09-05 Orders Doctor TRINA [id number] Univers 00:00:00 00:00:00 Only Unassigned, GILDARDO [id number] ity of [facility] [id number] Aaron as [id number] [facility] 009 [place] 2019-10-25 2019-10-25 Transition Roshan, Gerardobrenda 1.2.840.114 [id number] Univers 00:00:00 00:00:00 of Care Manpreet Nivia [address] [id number] ity of [place] [id number] [place] [id number] [facility] 403 Branch 2019-10-23 2019-10-24 Outpatient X SUZIE [facility] KASH [id number] Univers 12:37:14 14:18:00 KAMAR ity [facility] 2019-10-23 2019-10-24 Emergency Erwin Galicia [facility] 1.2.840. 114 [id number] Univers 12:37:14 14:18:00 Kamar Acosta [id number] ity [place] [id number] [id number] [address] Results Test Description Test Time Test Comments Results Result Comments Source TROPONIN I 2021-03-13 01:18:35 Test Item Value Reference Range Interpretation Comme nts TROPONIN I (test code = 0.002 ng/mL See_Comment [Au tomated message] The [id number]) system which ge nerated this result tra nsmitted reference range : <=0.034. The reference r lisa was not used to int erpret this result as normal/abnormal . JAME (test code = JAME) Reference (Normal) Range (defined by the 99th percentile reference limit): <= 0.034 ng/mL Note: Cardiac troponin begins to rise 3-4 hours after the onset of ischemia. Repeat in 4-6 hours if the sample was drawn within 3-4 hours of the onset of the symptom and found normal. Diagnosis of myocardial injury is made with acute changes in cTn concentrations with at least one serial sample above the 99th percentile upper reference limit (URL), taken together with the patient's clinical presentation. Biotin has been reported to cause a negative bias, interpret results relative to patient's use of biotin. Lab Interpretation Normal (test code = 28942-1) [id number]:57[facility]25 Test Item Value Reference Interpretation Comments Range TROPONIN I (test 0.007 ng/mL See_Comment [Automated code = 4153482706) message] The system which generated this result transmitted reference range : <=0.034. The reference range was not used to interpret this result as normal/abnormal . JAME (test code = Reference (Normal) JAME) Range (defined by the 99th percentile reference limit): <= 0.034 ng/mL Note: Cardiac troponin begins to rise 3-4 hours after the onset of ischemia. Repeat in 4-6 hours if the sample was drawn within 3-4 hours of the onset of the symptom and found normal. Diagnosis of myocardial injury is made with acute changes in cTn concentrations with at least one serial sample above the 99th percentile upper reference limit (URL), taken together with the patient's clinical presentation. Biotin has been reported to cause a negative bias, interpret results relative to patient's use of biotin. Lab Interpretation Normal (test code = 81475-0) [facility] [id number] 22:54:06 Test Item Value Reference Range Interpretation Comments NT-proBNP (test code 64 pg/mL See_Comment [Autom ated = [id number]) message] The system which generated this result transmitted reference range : <=125. The reference range was not used to interpret this result as normal/abnormal . JAME (test code = JAME) Biotin has been reported to cause a negative bias, interpret results relative to patient's use of biotin. Lab Interpretation Normal (test code = 97146-8) [facility] ([id number])2021-03-12 22:45:07 Test Item Value Reference Range Interpretation Comments NA (test code = 136 mmol/L 135-145 3818369319) K (test code = 4.2 mmol/L 3.5-5.0 4225156116) CL (test code = 103 mmol/L 98-108 2179898545) CO2 TOTAL (test code = 27 mmol/L 23-31 7884174773) AGAP (test code = 2-16 8304625343) BUN (test code = 22 mg/dL 7-23 7460446697) GLUCOSE (test code = 107 mg/dL 70-110 6962144498) CREATININE (test code = 1.45 mg/dL 0.60-1.25 H 1825929464) TOTAL BILI (test code = 0.6 mg/dL 0.1-1.5 5756864424) CALCIUM (test code = 9.0 mg/dL 8.6-10.6 0164780287) T PROTEIN (test code = 7.8 g/dL 6.3-8.2 6739334988) ALBUMIN (test code = 4.3 g/dL 3.5-5.0 1982141311) ALK PHOS (test code = 41 U/L 34-122 9921655072) ALTv (test code = 34 U/L 5-50 1742-6) AST(SGOT) (test code = 44 U/L 13-40 H 7240092618) eGFR (test code = mL/min/1.73m2 7221390538) JAME (test code = JAME) Association of Glomerular Filtration Rate (GFR) and Staging of Kidney Disease* + --+ --+ ------+| GFR (mL/min/1.73 m2) ?| With Kidney Damage ?| ?Without Kidney Damage+ --------+ --------+ +| ?>90 ?| ?Stage one ?| ? Normal ?+ ---+ ---+ -------+| ?60-89 ?| ?Stage two ?| ? Decreased GFR ? + --+ --+ ------+| ?30-59 ?| ?Stage three ?| ? Stage three ? + --+ --+ ------+| ?15-29 ?| ?Stage four ? | ? Stage four ?+ ---+ ---+ -------+| ?<15 (or dialysis) ? ?| ?Stage five ? | ? Stage five ?+ ---+ ---+ -------+ *Each stage assumes the associated GFR level has been in effect for at least three months. ?Stages 1 to 5, with or without kidney disease, indicate chronic kidney disease. Notes: Determination of stages one and two (with eGFR >59mL/min/1.73 m2) requires estimation of kidney damage for at least three months as defined by structural or functional abnormalities of the kidney, manifested by either:Pathological abnormalities or Markers of kidney damage (including abnormalities in the composition of the blood or urine or abnormalities in imaging tests). Lab Interpretation Abnormal (test code = 35615-7) [facility] WITH [id number] 22:33:20 Test Item Value Reference Range Interpretation Comments WBC (test code = See_Comment [Automated 1620-2) message] The sy stem which generated this result transmitted reference range : 4.20 - 10.70 10*3/?L. The reference range was not used to interpret this result as normal/abnormal . RBC (test code = See_Comment [Automated 770-8) message] The sy stem which generated this result transmitted reference range : 4.26 - 5.52 10*6/?L. The reference range was not used to interpret this result as normal/abnormal . HGB (test code = 14.7 g/dL 12.2-16.4 718-7) HCT (test code = 44.1 % 38.4-49.3 4544-3) MCV (test code = 89.3 fL 81.7-95.6 787-2) MCH (test code = 29.8 pg 26.1-32.7 785-6) MCHC (test code = 33.3 g/dL 31.2-35.0 786-4) RDW-SD (test code = 42.8 fL 38.5-51.6 25167-5) RDW-CV (test code = 13.0 % 12.1-15.4 788-0) PLT (test code = See_Comment [Automated 259-3) message] The sy stem which generated this result transmitted reference range : 150 - 328 10*3/ ?L. The reference r lisa was not used to interpret this result as normal/abnormal . MPV (test code = 9.1 fL 9.8-13.0 L 43473-3) NRBC/100 WBC (test See_Comment [Automat ed code = 0475617496) message] The system which generated this result transmitted reference range : 0.0 - 10.0 /100 WBCs. The refer ence range was not u sed to interpret th is result as normal/abnormal . NRBC x10^3 (test code <0.01 See_Comment [Auto mated = 6110059673) message] The s ystem which generated this result transmitted reference range : 10*3/?L. The reference range was not used to interpret this result as normal/abnormal . GRAN MAT (NEUT) % 45.3 % (test code = 770-8) IMM GRAN % (test code 0.30 % = 2980583522) LYMPH % (test code = 36.2 % 736-9) MONO % (test code = 16.8 % 5905-5) EOS % (test code = 1.0 % 713-8) BASO % (test code = 0.4 % 706-2) GRAN MAT x10^3(ANC) 3.13 10*3/uL 1.99-6.95 (test code = 4782310669) IMM GRAN x10^3 (test <0.03 0.00-0.06 code = 0083958067) LYMPH x10^3 (test code 2.50 10*3/uL 1.09-3.23 = 731-0) MONO x10^3 (test code 1.16 10*3/uL 0.36-1.02 H = 742-7) EOS x10^3 (test code = 0.07 10*3/uL 0.06-0.53 711-2) BASO x10^3 (test code 0.03 10*3/uL 0.01-0.09 = 704-7) Lab Interpretation Abnormal (test code = 05236-1) [id number] 17:59[facility]25 Test Item Value Reference Interpretation Comments Range TROPONIN I (test 0.005 ng/mL See_Comment [Automated code = 8011408299) message] The system which generated this result transmitted reference range : <=0.034. The reference range was not used to interpret this result as normal/abnormal . JAME (test code = Reference (Normal) JAME) Range (defined by the 99th percentile reference limit): <= 0.034 ng/mL Note: Cardiac troponin begins to rise 3-4 hours after the onset of ischemia. Repeat in 4-6 hours if the sample was drawn within 3-4 hours of the onset of the symptom and found normal. Diagnosis of myocardial injury is made with acute changes in cTn concentrations with at least one serial sample above the 99th percentile upper reference limit (URL), taken together with the patient's clinical presentation. Biotin has been reported to cause a negative bias, interpret results relative to patient's use of biotin. Lab Interpretation Normal (test code = 23864-4) [facility] 17:48:51 Test Item Value Reference Range Interpretation Comments APPEARANCE (test code = Clear Clear 5155434870) COLOR (test code = Yellow Yellow 0203056025) PH (test code = 4.8-8.0 7297512096) SP GRAVITY (test code = 1.003-1.030 1196054438) GLU U QUAL (test code = Normal Normal 6329185973) BLOOD (test code = Negative Negative 3793975609) KETONES (test code = Negative Negative 3146971403) PROTEIN (test code = Negative Negative 2887-8) UROBILIN (test code = Normal Normal 0802653457) BILIRUBIN (test code = Negative Negative 0778941149) NITRITE (test code = Negative Negative 6890448840) LEUK TREVOR (test code = Negative Negative 8436847237) RBC/HPF (test code = <1 See_Comment [Autom ated message] 3153546052) The system [employer] generated this result transmitted ref erence range: 0 - 3 HP F. The reference range was not used to int erpret this result as normal/abnormal . WBC/HPF (test code = <1 See_Comment [Autom ated message] 2858015674) The system [employer] [facility] generated this result transmitted ref erence range: 0 - 5 HP F. The reference range was not used to int erpret this result as normal/abnormal . BACTERIA (test code = Negative Negative 4632865434) Lab Interpretation (test Normal code = 96729-5) [facility]. METABOLIC PANEL (78910)2020-12-24 17:48:25 Test Item Value Reference Range Interpretation Comments NA (test code = 139 mmol/L 135-145 0942335535) K (test code = 4.5 mmol/L 3.5-5.0 1935670627) CL (test code = 105 mmol/L 98-108 0448452560) CO2 TOTAL (test code = 26 mmol/L 23-31 0047023129) AGAP (test code = 2-16 3639264071) BUN (test code = 20 mg/dL 7-23 6725681142) GLUCOSE (test code = 95 mg/dL 70-110 0074758538) CREATININE (test code = 1.31 mg/dL 0.60-1.25 H 6965427155) TOTAL BILI (test code = 0.8 mg/dL 0.1-1.7 5594890652) CALCIUM (test code = 9.3 mg/dL 8.6-10.6 0022430010) T PROTEIN (test code = 8.8 g/dL 6.3-8.2 H 2593881942) ALBUMIN (test code = 4.6 g/dL 3.5-5.0 7872421217) ALK PHOS (test code = 54 U/L 34-122 3614004949) ALTv (test code = 28 U/L 5-50 1742-6) AST(SGOT) (test code = 47 U/L 13-40 H 3678741059) eGFR (test code = mL/min/1.73m2 5622363397) JAME (test code = JAME) Association of Glomerular Filtration Rate (GFR) and Staging of Kidney Disease* + --+ --+ ------+| GFR (mL/min/1.73 m2) ?| With Kidney Damage ?| ?Without Kidney Damage+ --------+ --------+ +| ?>90 ?| ?Stage one ?| ? Normal ?+ ---+ ---+ -------+| ?60-89 ?| ?Stage two ?| ? Decreased GFR ? + --+ --+ ------+| ?30-59 ?| ?Stage three ?| ? Stage three ? + --+ --+ ------+| ?15-29 ?| ?Stage four ? | ? Stage four ?+ ---+ ---+ -------+| ?<15 (or dialysis) ? ?| ?Stage five ? | ? Stage five ?+ ---+ ---+ -------+ *Each stage assumes the associated GFR level has been in effect for at least three months. ?Stages 1 to 5, with or without kidney disease, indicate chronic kidney disease. Notes: Determination of stages one and two (with eGFR >59mL/min/1.73 m2) requires estimation of kidney damage for at least three months as defined by structural or functional abnormalities of the kidney, manifested by either:Pathological abnormalities or Markers of kidney damage (including abnormalities in the composition of the blood or urine or abnormalities in imaging tests). Lab Interpretation Abnormal (test code = 29725-1) [facility] WITH [id number] 17:36:06 Test Item Value Reference Range Interpretation Comments WBC (test code = See_Comment [Automated 5490-2) message] The sy stem which generated this result transmitted reference range : 4.20 - 10.70 10*3/?L. The reference range was not used to interpret this result as normal/abnormal . RBC (test code = See_Comment [Automated 055-8) message] The sy stem which generated this result transmitted reference range : 4.26 - 5.52 10*6/?L. The reference range was not used to interpret this result as normal/abnormal . HGB (test code = 15.0 g/dL 12.2-16.4 718-7) HCT (test code = 45.3 % 38.4-49.3 4544-3) MCV (test code = 90.1 fL 81.7-95.6 787-2) MCH (test code = 29.8 pg 26.1-32.7 785-6) MCHC (test code = 33.1 g/dL 31.2-35.0 786-4) RDW-SD (test code = 44.8 fL 38.5-51.6 55793-3) RDW-CV (test code = 13.5 % 12.1-15.4 788-0) PLT (test code = See_Comment [Automated 777-3) message] The sy stem which generated this result transmitted reference range : 150 - 328 10*3/ ?L. The reference r lisa was not used to interpret this result as normal/abnormal . MPV (test code = 9.8 fL 9.8-13.0 61756-6) NRBC/100 WBC (test See_Comment [Automat ed code = 8692812407) message] The system which generated this result transmitted reference range : 0.0 - 10.0 /100 WBCs. The refer ence range was not u sed to interpret th is result as normal/abnormal . NRBC x10^3 (test code <0.01 See_Comment [Auto mated = 7137737546) message] The s ystem which generated this result transmitted reference range : 10*3/?L. The reference range was not used to interpret this result as normal/abnormal . GRAN MAT (NEUT) % 50.3 % (test code = 770-8) IMM GRAN % (test code 0.30 % = 1209098350) LYMPH % (test code = 35.7 % 736-9) MONO % (test code = 13.1 % 5905-5) EOS % (test code = 0.3 % 713-8) BASO % (test code = 0.3 % 706-2) GRAN MAT x10^3(ANC) 3.25 10*3/uL 1.99-6.95 (test code = 2756318147) IMM GRAN x10^3 (test <0.03 0.00-0.06 code = 1242106761) LYMPH x10^3 (test code 2.31 10*3/uL 1.09-3.23 = 731-0) MONO x10^3 (test code 0.85 10*3/uL 0.36-1.02 = 742-7) EOS x10^3 (test code = <0.03 0.06-0.53 L 711-2) BASO x10^3 (test code <0.03 0.01-0.09 = 704-7) Lab Interpretation Abnormal (test code = 92911-6) [facility] [id number] 21:44:57Fracture at the distal portion of the first metatarsal head that is oblique and there is a small fracture on the lateral aspect of the proximal portion of the distal phalanx. ?Both fractures are nondisplaced and show good signs of healing. ? [facility] VW [id number] 23:55:05 Nondisplaced great toe distal phalangeal base fracture. Great toe gouty arthropathy.XR FOOT 3+ VW RIGHT INDICATION: right great toe pain/swelling COMPARISON: None FINDINGS: Nondisplaced fracture of the great toe distal phalangeal base withintra-articular extension. Chronic punched out erosions are seen at the great toe proximal phalangealhead and first metatarsal head. There is soft tissue swellingmedial to thefirst metatarsal head with faint mineralization. [facility], Radiant Results Inft User - 09/05/2020 6:56 PM CDTXR FOOT 3+ VW RIGHTINDICATION: right great toe pain/swelling COMPARISON: NoneFINDIN GS:Nondisplaced fracture of the great toe distal phalangeal base withintra- articular extension.Chronic punched out erosions are seen at the great toe proximal phalangealhead and first metatarsal head. There is soft tissue swelling medial to thefirst metatarsal head with faint mineralization.IMPRESSIONN ondisplaced great toe distal phalangeal base fracture.Great toe gouty arthropathy.[facility] (NA, K, CL, CO2, GLUCOSE, BUN, CREATININE, CA)2019-10-24 09:40:00 Test Item Value Reference Range Interpretation Comments NA (test code = 136 mmol/L 135-145 0743434219) K (test code = 4.7 mmol/L 3.5-5 0623801633) CL (test code = 107 mmol/L 98-108 4512087652) CO2 TOTAL (test code = 26 mmol/L 23-31 9576355603) AGAP (test code = 2-16 8195697927) BUN (test code = 17 mg/dL 7-23 8728419848) GLUCOSE (test code = 94 mg/dL 70-110 5416872271) CREATININE (test code 1.20 mg/dL 0.6-1.25 = 2251733932) CALCIUM (test code = 8.6 mg/dL 8.6-10.6 6885514575) eGFR Calculation mL/min/1.73m2 (Non-) (test code = 4712430139) eGFR Calculation mL/min/1.73m2 () (test code = 1523144320) JAME (test code = JAME) Association of Glomerular Filtration Rate (GFR) and Staging of Kidney Disease* + -+ + ---+| GFR (mL/min/1.73 m2) ?| With Kidney Damage ?| ?Without Kidney Damage+ -------+ ------+ ---------+| ?>90 ?| ?Stage one ?| ? Normal ?+ --+ -+ ----+| ?60-89 ?| ?Stage two ?| ? Decreased GFR ? + -+ + ---+| ?30-59 ?| ?Stage three ?| ? Stage three ? + -+ + ---+| ?15-29 ?| ?Stage four ? | ? Stage four ?+ --+ -+ ----+| ?<15 (or dialysis) ? ?| ?Stage five ? | ? Stage five ?+ --+ -+ ----+ *Each stage assumes the associated GFR level has been in effect for at least three months. ?Stages 1 to 5, with or without kidney disease, indicate chronic kidney disease. Notes: Determination of stages one and two (with eGFR >59mL/min/1.73 m2) requires estimation of kidney damage for at least three months as defined by structural or functional abnormalities of the kidney, manifested by either:Pathological abnormalities or Markers of kidney damage (including abnormalities in the composition of the blood or urine or abnormalities in imaging tests). [facility] WITH [id number] 09:15:00 Test Item Value Reference Range Interpretation Comments WBC (test code = See_Comment [Automated 6070-2) message] The sy stem which generated this result transmitted reference range : 4.20 - 10.70 10*3/?L. The reference range was not used to interpret this result as normal/abnormal . RBC (test code = See_Comment [Automated 784-8) message] The sy stem which generated this result transmitted reference range : 4.26 - 5.52 10*6/?L. The reference range was not used to interpret this result as normal/abnormal . HGB (test code = 13.8 g/dL 12.2-16.4 718-7) HCT (test code = 43.2 % 38.4-49.3 4544-3) MCV (test code = 91.3 fL 81.7-95.6 787-2) MCH (test code = 29.2 pg 26.1-32.7 785-6) MCHC (test code = 31.9 g/dL 31.2-35 786-4) RDW-SD (test code = 45.9 fL 38.5-51.6 84825-2) RDW-CV (test code = 13.5 % 12.1-15.4 788-0) PLT (test code = See_Comment [Automated 777-3) message] The sy stem which generated this result transmitted reference range : 150 - 328 10*3/ ?L. The reference r lisa was not used to interpret this result as normal/abnormal . MPV (test code = 10.9 fL 9.8-13 41900-9) NRBC/100 WBC (test See_Comment [Automat ed code = 4283732459) message] The system which generated this result transmitted reference range : 0.0 - 10.0 /100 WBCs. The refer ence range was not u sed to interpret th is result as normal/abnormal . NRBC x10^3 (test code <0.01 See_Comment [Auto mated = 3410240261) message] The s ystem which generated this result transmitted reference range : 10*3/?L. The reference range was not used to interpret this result as normal/abnormal . GRAN MAT (NEUT) % 46.9 % (test code = 770-8) IMM GRAN % (test code 0.50 % = 0645376081) LYMPH % (test code = 37.7 % 736-9) MONO % (test code = 13.9 % 5905-5) EOS % (test code = 0.5 % 713-8) BASO % (test code = 0.5 % 706-2) GRAN MAT x10^3(ANC) 3.07 10*3/uL 1.99-6.95 (test code = 9844199765) IMM GRAN x10^3 (test 0.03 10*3/uL 0-0.06 code = 7770401722) LYMPH x10^3 (test code 2.46 10*3/uL 1.09-3.23 = 731-0) MONO x10^3 (test code 0.91 10*3/uL 0.36-1.02 = 742-7) EOS x10^3 (test code = 0.03 10*3/uL 0.06-0.53 L 711-2) BASO x10^3 (test code 0.03 10*3/uL 0.01-0.09 = 704-7) Lab Interpretation Abnormal (test code = 57125-0) [facility] [id number] 05:59:00 Test Item Value Reference Range Interpretation Comments TROPONIN I (test <0.012 See_Comment [Automated code = 5842188045) message] The system which generated this result transmitted reference range : <=0.034 ng/mL. The reference range was not used to interpr et this result as normal/abnormal . JAME (test code = Equal or Less than JAME) 0.034 ng/ml---Normal ?Note: Cardiac troponin begins to rise 3-4 hours after the onset of ischemia. Repeat in 4-6 hours if the sample was drawn within 3-4 hours of the onset of the symptom and found normal. Between 0.035 and 0.120 ng/mL--- Borderline. Questionable myocardial injury or necrosis ? ?Note: Serial measurement may be necessary to confirm or exclude the diagnosis of myocardial injury or necrosis; Clinical correlation (symptoms, EKGs, imaging studies, and others) required; Repeat in 4-6 hours if clinically indicated. ? Equal or Higher than 0.121 ng/mL---Abnormal. Myocardial Injury or Necrosis Likely ? Biotin has been reported to cause a negative bias, interpret results relative to patient's use of biotin. ? Lab Interpretation Normal (test code = 49922-1) [facility] [id number] 00:38:00 Test Item Value Reference Range Interpretation Comments TROPONIN I (test <0.012 See_Comment [Automated code = 2076561851) message] The system which generated this result transmitted reference range : <=0.034 ng/mL. The reference range was not used to interpr et this result as normal/abnormal . JAME (test code = Equal or Less than JAME) 0.034 ng/ml---Normal ?Note: Cardiac troponin begins to rise 3-4 hours after the onset of ischemia. Repeat in 4-6 hours if the sample was drawn within 3-4 hours of the onset of the symptom and found normal. Between 0.035 and 0.120 ng/mL--- Borderline. Questionable myocardial injury or necrosis ? ?Note: Serial measurement may be necessary to confirm or exclude the diagnosis of myocardial injury or necrosis; Clinical correlation (symptoms, EKGs, imaging studies, and others) required; Repeat in 4-6 hours if clinically indicated. ? Equal or Higher than 0.121 ng/mL---Abnormal. Myocardial Injury or Necrosis Likely ? Biotin has been reported to cause a negative bias, interpret results relative to patient's use of biotin. ? Lab Interpretation Normal (test code = 69621-8) [facility]cos[facility]oglobin (A1C)2019-10-23 22:25:00 Test Item Value Reference Interpretation Comments Range HGB A1C (test code = See_Comment H [Autom ated 4548-4) message] The system which generated this result transmitted reference range : 4.0 - 6.0 % NGSP. The reference range was not used to interpret this result as normal/abnormal . JAME (test code = %A1C (NGSP) JAME) Interpretation (ADA)4.8-5.6 ? ? Normal or (Non-Diabetic Range)5.7-6.4 ? ? Increased Risk (Pre-Diabetic)>6.5 ?Diabetes Indicated Lab Interpretation Abnormal (test code = 95269-7) [facility]ulating Hormone (TSH)2019-10-23 21:43:00 Test Item Value Reference Range Interpretation Comments TSH (test code = See_Comment Biotin has been 9193820248) reported to cau se a negative bias, interpret resul ts relative to maryan stein's use of biotin. [Automated mess age] The system [employer] generated this result transmitted ref erence range: 0.45 - 4 .70 mIU/L. The refe rence range was not u sed to interpret this result as normal/abnor mal. Lab Interpretation (test Normal code = 32779-7) [facility]COVID[facility] (ID NOW RAPID TESTING)2019-10-23 20:11:00 Test Item Value Reference Range Interpretation Comments SARS-CoV-2 Rapid ID NOW Not Detected Not Detected (test code = 93259-1) JAME (test code = JAME) ID NOW COVID-19 Assay is an isothermal nucleic acid amplification test intended for the qualitative detection of nucleic acid from SARS-CoV-2 viral RNA in nasopharyngeal ([employer]) specimens. It is used under Emergency Use Authorization (EUA) by FDA. The limit of detection (LOD) of the assay is 125 Genome Equivalents/mL. A positive result is indicative of the presence of SARS-CoV-2 RNA. ?Clinical correlation with patient history and other diagnostic information is necessary to determine patient infection status. A negative (Not Detected) result does not preclude SARS-CoV-2 infection. In patients with clinical symptoms and other tests that are consistent with SARS-CoV-2 infection, negative results should be treated as presumptive negative and a new specimen should be tested with alternative PCR molecular test. Invalid: Please collect a new specimen for repeat patient testing if clinically indicated. Lab Interpretation Normal (test code = 37222-5) [facility] HospitalLIPID PANEL (61358)(TOTAL CHOLESTEROL, TRIGLYCERIDES, HDL)2019-10-23 19:33:00 Test Item Value Reference Range Interpretation Comments CHOL (test code = 165 mg/dL 120-200 0605212592) HDL (test code = 39 mg/dL >40 L 5100697144) HDLC RATIO (test code = See_Comment [Au tomated message] 7888128770) The system [employer] [facility] generated this result transmit steven reference range : <=5.0. The refe rence range was not u sed to interpret th is result as normal/abnormal . TRIG (test code = 89 mg/dL 30-170 9186015467) LDL CHOL (test code = 108 mg/dL See_Comment [Auto mated message] 91034-6) The system [employer] [facility] generated this result transmit steven reference range : <=160. The refe rence range was not u sed to interpret th is result as normal/abnormal . VLDL (test code = 18 mg/dL 5-60 7165671340) Lab Interpretation (test Abnormal code = 04664-4) [facility] [id number] 18:29:00 Test Item Value Reference Range Interpretation Comments TROPONIN I (test <0.012 See_Comment [Automated code = 7366351739) message] The system which generated this result transmitted reference range : <=0.034 ng/mL. The reference range was not used to interpr et this result as normal/abnormal . JAME (test code = Equal or Less than JAME) 0.034 ng/ml---Normal ?Note: Cardiac troponin begins to rise 3-4 hours after the onset of ischemia. Repeat in 4-6 hours if the sample was drawn within 3-4 hours of the onset of the symptom and found normal. Between 0.035 and 0.120 ng/mL--- Borderline. Questionable myocardial injury or necrosis ? ?Note: Serial measurement may be necessary to confirm or exclude the diagnosis of myocardial injury or necrosis; Clinical correlation (symptoms, EKGs, imaging studies, and others) required; Repeat in 4-6 hours if clinically indicated. ? Equal or Higher than 0.121 ng/mL---Abnormal. Myocardial Injury or Necrosis Likely ? Biotin has been reported to cause a negative bias, interpret results relative to patient's use of biotin. ? Lab Interpretation Normal (test code = 44160-5) [facility]MINAL [id number] 18:26:00 Test Item Value Reference Range Interpretation Comments NT-proBNP (test code 113 pg/mL See_Comment [Autom ated = 9482191405) message] The system which generated this result transmitted reference range : <=125. The reference range was not used to interpret this result as normal/abnormal . JAME (test code = JAME) Biotin has been reported to cause a negative bias, interpret results relative to patient's use of biotin. Lab Interpretation Normal (test code = 07418-1) [facility] 1 [id number] 18:19:38HISTORY: Chest pain. TECHNIQUE: Portable AP erect view of the chest is obtained. Comparison madewith01/21/2017 study. FINDINGS: No acute pneumonia. No pneumothorax or pleural effusion orpulmonary congestion detected. Cardiac size is within normal limits. CONCLUSIONS: No signs of acute cardiopulmonary disease.[facility], Radiant Results Inft User - 10/23/2019 1:20 PM CDTHISTORY: Chest pain.TECHNIQUE: Portable AP erect view of the chest is obtained. Comparison madewith 01/21/2017 study.FINDINGS: No acute pneumonia. No pneumothorax or pleural effusion orpulmonary congestion detected. Cardiac size is within normal limits. CONCLUSIONS: No signs of acute cardiopulmonary disease.[facility] HospitalCOMP. METABOLIC PANEL (20859)2019-10-23 18:18:00 Test Item Value Reference Range Interpretation Comments NA (test code = 138 mmol/L 135-145 7020802687) K (test code = 4.0 mmol/L 3.5-5 3653277529) CL (test code = 105 mmol/L 98-108 0567846525) CO2 TOTAL (test code = 27 mmol/L 23-31 6256601654) AGAP (test code = 2-16 1260988050) BUN (test code = 16 mg/dL 7-23 3225804509) GLUCOSE (test code = 111 mg/dL 70-110 H 3790396205) CREATININE (test code = 1.37 mg/dL 0.6-1.25 H 2886383270) TOTAL BILI (test code = 0.7 mg/dL 0.1-1.5 1212836116) CALCIUM (test code = 9.0 mg/dL 8.6-10.6 1970284321) T PROTEIN (test code = 8.0 g/dL 6.3-8.2 9465033354) ALBUMIN (test code = 4.4 g/dL 3.5-5 2524921028) ALK PHOS (test code = 49 U/L 34-122 1760575689) ALTv (test code = 36 U/L 5-50 1742-6) AST(SGOT) (test code = 38 U/L 13-40 5267525421) eGFR Calculation mL/min/1.73m2 (Non-) (test code = 2727037464) eGFR Calculation mL/min/1.73m2 () (test code = 0374018501) JAME (test code = JAME) Association of Glomerular Filtration Rate (GFR) and Staging of Kidney Disease* + --+ --+ ------+| GFR (mL/min/1.73 m2) ?| With Kidney Damage ?| ?Without Kidney Damage+ --------+ --------+ +| ?>90 ?| ?Stage one ?| ? Normal ?+ ---+ ---+ -------+| ?60-89 ?| ?Stage two ?| ? Decreased GFR ? + --+ --+ ------+| ?30-59 ?| ?Stage three ?| ? Stage three ? + --+ --+ ------+| ?15-29 ?| ?Stage four ? | ? Stage four ?+ ---+ ---+ -------+| ?<15 (or dialysis) ? ?| ?Stage five ? | ? Stage five ?+ ---+ ---+ -------+ *Each stage assumes the associated GFR level has been in effect for at least three months. ?Stages 1 to 5, with or without kidney disease, indicate chronic kidney disease. Notes: Determination of stages one and two (with eGFR >59mL/min/1.73 m2) requires estimation of kidney damage for at least three months as defined by structural or functional abnormalities of the kidney, manifested by either:Pathological abnormalities or Markers of kidney damage (including abnormalities in the composition of the blood or urine or abnormalities in imaging tests). Lab Interpretation Abnormal (test code = 89547-3) [facility] Test Item Value Reference Range Interpretation Comments MAGNESIUM (test code = 9795326700) 2.1 mg/dL 1.7-2.4 Lab Interpretation (test code = Normal 66687-3) [facility] [id number] 18:13:00 Test Item Value Reference Range Interpretation Comments PROTIME PATIENT (test See_Comment [Auto mated message] code = 5964-2) The system wh ich generated this result transmitted ref erence range: 12.0 - 1 4.7 Seconds. The re ference range was not u sed to interpret this result as normal/abnor mal. INR (test code = 6301-6) Nor mal INR <1.1; Warfarin Therap eutic range 2.0 to 3. 0 or 2.5 to 3.5, dep ending upon the indica tions. Lab Interpretation (test Normal code = 58157-5) [facility] WITH [id number] 18:07:00 Test Item Value Reference Range Interpretation Comments WBC (test code = See_Comment [Automated 7790-2) message] The sy stem which generated this result transmitted reference range : 4.20 - 10.70 10*3/?L. The reference range was not used to interpret this result as normal/abnormal . RBC (test code = See_Comment [Automated 589-8) message] The sy stem which generated this result transmitted reference range : 4.26 - 5.52 10*6/?L. The reference range was not used to interpret this result as normal/abnormal . HGB (test code = 14.8 g/dL 12.2-16.4 718-7) HCT (test code = 44.9 % 38.4-49.3 4544-3) MCV (test code = 90.0 fL 81.7-95.6 787-2) MCH (test code = 29.7 pg 26.1-32.7 785-6) MCHC (test code = 33.0 g/dL 31.2-35 786-4) RDW-SD (test code = 44.6 fL 38.5-51.6 26967-2) RDW-CV (test code = 13.4 % 12.1-15.4 788-0) PLT (test code = See_Comment [Automated 777-3) message] The sy stem which generated this result transmitted reference range : 150 - 328 10*3/ ?L. The reference r lisa was not used to interpret this result as normal/abnormal . MPV (test code = 10.1 fL 9.8-13 46399-0) NRBC/100 WBC (test See_Comment [Automat ed code = [id number]) message] The system which generated this result transmitted reference range : 0.0 - 10.0 /100 WBCs. The refer ence range was not u sed to interpret th is result as normal/abnormal . NRBC x10^3 (test code <0.01 See_Comment [Auto mated = [id number]) message] The s ystem which generated this result transmitted reference range : 10*3/?L. The reference range was not used to interpret this result as normal/abnormal . GRAN MAT (NEUT) % 45.9 % (test code = 770-8) IMM GRAN % (test code 0.20 % = 7627753795) LYMPH % (test code = 39.9 % 736-9) MONO % (test code = 13.2 % 5905-5) EOS % (test code = 0.5 % 713-8) BASO % (test code = 0.3 % 706-2) GRAN MAT x10^3(ANC) 2.63 10*3/uL 1.99-6.95 (test code = 3710991860) IMM GRAN x10^3 (test <0.03 0-0.06 code = 0513051626) LYMPH x10^3 (test code 2.29 10*3/uL 1.09-3.23 = 731-0) MONO x10^3 (test code 0.76 10*3/uL 0.36-1.02 = 742-7) EOS x10^3 (test code = 0.03 10*3/uL 0.06-0.53 L 711-2) BASO x10^3 (test code <0.03 0.01-0.09 = 704-7) Lab Interpretation Abnormal (test code = 09177-7) [facility]"
[2021-06-05] MEDS ORDERED: FAMOTIDINE 20 MG TAB ONE (03:30)
[2021-06-05] MEDS ORDERED: DIPHENHYDRAMINE 50 MG/ML VIAL ONE (03:30)
[2021-06-05] MEDS ORDERED: predniSONE 20 MG TAB ONE (03:30)
--- NOTE | 2021-06-05 03:34 | ER ---
Nurse's Notes [facility] Name: Marquez De Oliveira Jr Age: 71 yrs Sex: Male : 1950 Arrival Date: 06/05/2021 Time: 02:34 Bed 12 Private MD: Diagnosis: Urticaria, unspecified;Allergic urticaria;Allergy status to unspecified drugs, medicaments and biological substances status-Motrin Presentation: 06/05 02:42 Chief complaint: Patient states: went for dental work today and dentist prescribed an sf1 antibiotic and motrin. I took my medication and started having hives , I took a benadryl and the hives went away. I took my medication again and the hives came back." Patient took a second benadryl 25 min ago. Coronavirus screen: Vaccine status: Patient reports receiving the 2nd dose of the covid vaccine. Client denies travel out of the [place] in the last 14 days. Ebola Screen: Patient negative for fever greater than or equal to 101.5 degrees Fahrenheit, and additional compatible Ebola Virus Disease symptoms Patient denies exposure to infectious person. Patient denies travel to an Ebola-affected area in the 21 days before illness onset. Onset: The symptoms/episode began/occurred suddenly, .5 hour(s) ago. Anaphylaxis evaluation, hives. Initial Sepsis Screen: Does the patient meet any 2 criteria? No. Patient's initial sepsis screen is negative. Does the patient have a suspected source of infection? No. Patient's initial sepsis screen is negative. Risk Assessment: Do you want to hurt yourself or someone else? Patient reports no desire to harm self or others. Onset of symptoms was June 04, 2021 at 23:00. 02:42 Method Of Arrival: Ambulatory sf1 02:42 Acuity: NESHA 2 sf1 Historical: - Allergies: 03:47 Amoxicillin; tw5 03:47 Aspirin; tw5 03:47 PENICILLINS; tw5 - Home Meds: 03:47 Coreg 6.25 mg Oral tab 2 times per day [Active]; lisinopril 20 mg Oral tab once daily tw5 [Active]; - PMHx: 03:47 Gout; Hypertension; tw5 - Immunization history:: Adult Immunizations up to date. - Family history:: not pertinent. - Social history:: Smoking status: Patient denies any tobacco usage or history of. Screenin:46 Abuse screen: Denies threats or abuse. Nutritional screening: No deficits noted. sf1 Tuberculosis screening: No symptoms or risk factors identified. Fall Risk None identified. Assessment: 02:46 Pain: Complains of pain in posterior chest Pain currently is 9 out of 10 on a pain sf1 scale. Respiratory: Airway is patent Respiratory effort is even, unlabored, Breath sounds are clear bilaterally. 03:34 General: Appears in no apparent distress. comfortable, Behavior is calm, cooperative. sf1 Pain: Denies pain. Neuro: No deficits noted. Level of Consciousness is awake, alert, obeys commands, Oriented to person, place, time, situation, [employer] are equal bilaterally Moves all extremities. Gait is steady, Speech is normal. Cardiovascular: Capillary refill < 3 seconds JVD is absent Patient's skin is warm and dry. Respiratory: Airway is patent Trachea midline Respiratory effort is even, unlabored, Respiratory pattern is regular, symmetrical. GI: Abdomen is round non-distended. : No deficits noted. No signs and/or symptoms were reported regarding the genitourinary system. EENT: No deficits noted. No signs and/or symptoms were reported regarding the EENT system. Derm: Skin is intact, is healthy with good turgor, Skin is dry, Rash noted that is urticaria. Musculoskeletal: No deficits noted. No signs and/or symptoms reported regarding the musculoskeletal system. Vital Signs: 02:42 BP 147 / 75; Pulse 64; Resp 22; Temp 96.9; Pulse Ox 100% ; Weight 134.72 kg; Height 5 sf1 ft. 9 in. (175.26 cm); Pain 7/10; 02:42 Body Mass Index 43.86 (134.72 kg, 175.26 cm) sf1 ED Course: 02:34 Patient arrived in ED. ja2 02:45 Triage completed. sf1 02:51 Laila Sosa RN is Primary Nurse. sf1 02:52 Seven Herrera MD is Attending Physician. [facility] 03:34 Patient has correct armband on for positive identification. Call light in reach. sf1 03:34 No provider procedures requiring assistance completed. Patient did not have IV access sf1 during this emergency room visit. 03:47 Arm band placed on. tw5 Administered Medications: 03:34 Drug: Benadryl (diphenhydrAMINE) 50 mg Route: IM; Site: right gluteus; sf1 03:34 Follow up: Response: No adverse reaction sf1 03:34 Drug: predniSONE 60 mg Route: PO; sf1 03:34 Follow up: Response: No adverse reaction sf1 03:34 Drug: Pepcid (famotidine) 40 mg Route: PO; sf1 03:34 Follow up: Response: No adverse reaction sf1 Outcome: 03:33 Discharge ordered by MD. [place] 03:34 Discharged to home ambulatory. sf1 03:34 Condition: improved 03:34 Discharge instructions given to patient, Prescriptions given X 4. 03:48 Patient left the ED. tw5 Signatures: Seven Herrera MD MD cha Alexander, Jessica ja2 Wood, Tiffany tw5 Laila Sosa RN RN sf1
--- NOTE | 2021-06-05 03:34 | EDPHYS ---
Physician Documentation [facility] Name: Marquez De Oliveira Jr Age: 71 yrs Sex: Male : 1950 Arrival Date: 06/05/2021 Time: 02:34 Bed 12 Private MD: ED Physician Seven Herrera HPI: 06/05 03:23 This 71 yrs old Black Male presents to ER via Ambulatory with complaints of Allergic celso Reaction. 03:23 The patient presents with difficulty swallowing, rash. Onset: The symptoms/episode celso began/occurred just prior to arrival. Associated signs and symptoms: Pertinent positives: hives, shortness of breath, swelling. Possible causes: NSAIDs, ibuprofen. At home the patient or guardian has treated the symptoms with Benadryl. Severity of symptoms: At their worst the symptoms were mild in the emergency department the symptoms are unchanged. The patient has not experienced similar symptoms in the past. 03:35 The patient's rash thought to be caused by medication. The rash is located on the body celso diffusely. The rash can be described as erythematous, raised, urticarial. Associated signs and symptoms: Pertinent positives: burning sensation, itching, Pain. Historical: - Allergies: 03:47 Amoxicillin; tw5 03:47 Aspirin; tw5 03:47 PENICILLINS; tw5 - Home Meds: 03:47 Coreg 6.25 mg Oral tab 2 times per day [Active]; lisinopril 20 mg Oral tab once daily tw5 [Active]; - PMHx: 03:47 Gout; Hypertension; tw5 - Immunization history:: Adult Immunizations up to date. - Family history:: not pertinent. - Social history:: Smoking status: Patient denies any tobacco usage or history of. ROS: 03:24 Constitutional: Negative for fever, chills, and weight loss, Eyes: Negative for injury, celso pain, redness, and discharge, ENT: Negative for injury, pain, and discharge, Neck: Negative for injury, pain, and swelling, Cardiovascular: Negative for chest pain, palpitations, and edema, Respiratory: Negative for shortness of breath, cough, wheezing, and pleuritic chest pain, Abdomen/GI: Negative for abdominal pain, nausea, vomiting, diarrhea, and constipation, Back: Negative for injury and pain, : Negative for injury, bleeding, discharge, and swelling, MS/Extremity: Negative for injury and deformity, Neuro: Negative for headache, weakness, numbness, tingling, and seizure, Psych: Negative for depression, anxiety, suicide ideation, homicidal ideation, and hallucinations, Allergy/Immunology: Negative for hives, rash, and allergies, Endocrine: Negative for neck swelling, polydipsia, polyuria, polyphagia, and marked weight changes, Hematologic/Lymphatic: Negative for swollen nodes, abnormal bleeding, and unusual bruising. 03:24 Skin: Positive for rash. Exam: 03:24 Constitutional: This is a well developed, well nourished patient who is awake, alert, celso and in no acute distress. Head/Face: Normocephalic, atraumatic. Eyes: Pupils equal round and reactive to light, extra-ocular motions intact. Lids and lashes normal. Conjunctiva and sclera are non-icteric and not injected. Cornea within normal limits. Periorbital areas with no swelling, redness, or edema. ENT: Nares patent. No nasal discharge, no septal abnormalities noted. Tympanic membranes are normal and external auditory canals are clear. Oropharynx with no redness, swelling, or masses, exudates, or evidence of obstruction, uvula midline. Mucous membranes moist. Neck: Trachea midline, no thyromegaly or masses palpated, and no cervical lymphadenopathy. Supple, full range of motion without nuchal rigidity, or vertebral point tenderness. No Meningismus. Chest/axilla: Normal chest wall appearance and motion. Nontender with no deformity. No lesions are appreciated. Cardiovascular: Regular rate and rhythm with a normal S1 and S2. No gallops, murmurs, or rubs. Normal PMI, no JVD. No pulse deficits. Respiratory: Lungs have equal breath sounds bilaterally, clear to auscultation and percussion. No rales, rhonchi or wheezes noted. No increased work of breathing, no retractions or nasal flaring. Abdomen/GI: Soft, non-tender, with normal bowel sounds. No distension or tympany. No guarding or rebound. No evidence of tenderness throughout. Back: No spinal tenderness. No costovertebral tenderness. Full range of motion. Male : Normal genitalia with no discharge or lesions. MS/ Extremity: Pulses equal, no cyanosis. Neurovascular intact. Full, normal range of motion. Neuro: Awake and alert, GCS 15, oriented to person, place, time, and situation. Cranial nerves II-XII grossly intact. Motor strength 5/5 in all extremities. Sensory grossly intact. Cerebellar exam normal. Normal gait. Psych: Awake, alert, with orientation to person, place and time. Behavior, mood, and affect are within normal limits. 03:24 Skin: urticaria. Vital Signs: 02:42 BP 147 / 75; Pulse 64; Resp 22; Temp 96.9; Pulse Ox 100% ; Weight 134.72 kg; Height 5 sf1 ft. 9 in. (175.26 cm); Pain 7/10; 02:42 Body Mass Index 43.86 (134.72 kg, 175.26 cm) sf1 MDM: 02:55 Patient medically screened. celso 03:29 Differential diagnosis: allergic reaction, anaphylaxis, angioedema, urticaria. Data celso reviewed: vital signs, nurses notes. 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 Counseling: I had a detailed discussion with the patient and/or guardian regarding: the historical points, exam findings, and any diagnostic results supporting the discharge/admit diagnosis, the need for outpatient follow up, for definitive care, a family practitioner. Administered Medications: 03:34 Drug: Benadryl (diphenhydrAMINE) 50 mg Route: IM; Site: right gluteus; sf1 03:34 Follow up: Response: No adverse reaction sf1 03:34 Drug: predniSONE 60 mg Route: PO; sf1 03:34 Follow up: Response: No adverse reaction sf1 03:34 Drug: Pepcid (famotidine) 40 mg Route: PO; sf1 03:34 Follow up: Response: No adverse reaction sf1 Disposition Summary: 06/05/21 03:33 Discharge Ordered Location: Home celso Problem: new celso Symptoms: have improved celso Condition: Stable celso Diagnosis - Urticaria, unspecified celso - Allergic urticaria celso - Allergy status to unspecified drugs, medicaments and biological substances status - celso Motrin Followup: celso - With: Private Physician - When: 2 - 3 days - Reason: Recheck today's complaints, Continuance of care, Re-evaluation by your physician Discharge Instructions: - Discharge Summary Sheet celso - Allergies, Adult celso - Hives celso - Rash, Adult celso - Hives, [id number] [facility] - Allergies, Adult, [id number] [facility] Forms: - Medication Reconciliation Form [facility] - Thank You Letter [facility] - Antibiotic Education [facility] - Prescription Opioid Use [facility] Prescriptions: - EpiPen 0.3 mg/0.3 mL Injection auto-injector - inject 0.3 milliliter by INTRAMUSCULAR route one time as needed for celso anaphylaxis; 2 Cartridge; Refills: 0, Product Selection Permitted - Benadryl 25 mg Oral Capsule - take 2 capsule by ORAL route every 6 hours As needed; 45 tablet; Refills: 0, [facility] Product Selection Permitted - Pepcid 20 mg Oral Tablet - take 1 tablet by ORAL route every 12 hours for 15 days; 30 tablet; Refills: 0, [facility] Product Selection Permitted - Prednisone 20 mg Oral Tablet - take 3 tablets by ORAL route once daily for 5 days; 15 tablet; Refills: 0, [facility] Product Selection Permitted Signatures: Seven Herrera MD MD cha Wood, Tiffany tw5 Laila Sosa RN RN sf1
[2021-06-05 03:53] VITALS: BP 147/75; TEMP 96.9; O2SAT 100
== END 2021-06-05 03:48 | disposition home or self-care (01) ==
LOC: ER 02:31
DX: L50.0 Allergic urticaria (principal); Z88.6 Allergy status to analgesic agent; I10 Essential (primary) hypertension; Z88.0 Allergy status to penicillin; Z88.1 Allergy status to other antibiotic agents
CPT/HCPCS: 96372; 99283; J1200; J7512